=== PATIENT | male | born 1955 | race Caucasian/White ===

== ENCOUNTER 2017-08-14 14:43 | Emergency (ER) | payer MEDICAID ==
[~2017-08-14] VITALS: Ht 160 cm; Wt 59.1 kg
[~2017-08-14 14:43] MED LIST: ALBU8.5H8 INH; CEPH500C5 PO; IBUP-24 PO; LACT1CAP65 PO
[2017-08-14 15:02] LABS: BASOPHILS # (AUTO) 0.1 X10'3 (0-0.2); BASOPHILS % (AUTO) 0.5 % (0-1); EOSINOPHILS # (AUTO) 0.3 X10'3 (0-0.9); EOSINOPHILS % (AUTO) 2.4 % (0-6); HEMOGLOBIN 11.1 g/dl (14.0-17.9); LYMPHOCYTES # (AUTO) 2.9 X10'3 (1.1-4.8); LYMPHOCYTES % (AUTO) 21.8 % (21-51); MEAN CORPUSCULAR HEMOGLOBIN 31.5 PG (27.0-31.0); MEAN CORPUSCULAR HGB CONC 33.5 % (33.0-36.5); MEAN CORPUSCULAR VOLUME 94.1 FL (78-98); MEAN PLATELET VOLUME 7.4 FL (7.4-10.4); MONOCYTES # (AUTO) 1.2 X10'3 (0-0.9); MONOCYTES % (AUTO) 8.7 % (2-12); NEUTROPHILS % (AUTO) 66.6 % (42-75); PLATELET COUNT 337 X10'3 (140-440); WHITE BLOOD COUNT 13.4 X10'3 (4.5-11.0)
[2017-08-14 15:11] LABS: INR 0.9 INR; PARTIAL THROMBOPLASTIN TIME 27 SECONDS (22-32); PROTHROMBIN TIME 9.8 SECONDS (9.0-12.0)
[2017-08-14 15:18] LABS: ALANINE AMINOTRANSFERASE 10 U/L (12-78); ALBUMIN 2.5 G/DL (3.4-5.0); ALBUMIN/GLOBULIN RATIO 0.6 (1.1-1.5); ALKALINE PHOSPHATASE 87 IU/L (46-116); ANION GAP 8 (8-16); ASPARTATE AMINO TRANSFERASE 13 U/L (10-37); BILIRUBIN,TOTAL 0.2 MG/DL (0.1-1.0); BLOOD UREA NITROGEN 16 MG/DL (7-18); BUN/CREATININE RATIO 11.4 (5.4-32.0); CALCIUM 8.2 MG/DL (8.5-10.1); CHLORIDE 105 MMOL/L (99-107); GLUCOSE 117 MG/DL (70-104); LIPASE 60 U/L (73-393); POTASSIUM 3.7 MMOL/L (3.5-5.1); SODIUM 139 MMOL/L (135-145); TOTAL CARBON DIOXIDE 25.7 MMOL/L (24-32); TOTAL PROTEIN 6.6 G/DL (6.4-8.2); eGFR 51 ML/MIN
[2017-08-14] MEDS ORDERED: normal saline 1000ML IV soln IVB ONE (16:20)
[2017-08-14] MEDS ORDERED: azithromycin/NS 500mg/250ml 250 ML IV ONE (16:20)
[2017-08-14] MEDS ORDERED: CefTRIAXone 2gm/NS 100ml IVPB 100 ML IV ONE (16:20)
[2017-08-14 17:33] VITALS: BP 118/92
== END 2017-08-14 19:09 | disposition home or self-care (01) ==
LOC: ER 14:44
DX: R55 Syncope and collapse (principal); F12.10 Cannabis abuse, uncomplicated; F17.200 Nicotine dependence, unspecified, uncomplicated; Z98.890 Other specified postprocedural states; Z79.899 Other long term (current) drug therapy
CPT/HCPCS: 36415; 71045; 80053; 83690; 84484; 85025; 85610; 85730; 93005; 99285; J7030

== ENCOUNTER 2018-10-09 17:27 | Emergency (ER) | payer MEDICAID ==
[~2018-10-09] VITALS: Ht 160 cm; Wt 59.1 kg
[~2018-10-09 17:27] MED LIST changes: -CEPH500C5 PO
[2018-10-09 18:58] LABS: BASOPHILS % (AUTO) 0.3 % (0-1); EOSINOPHILS # (AUTO) 0.1 X10'3 (0-0.9); EOSINOPHILS % (AUTO) 0.6 % (0-6); HEMATOCRIT 43.9 % (42.0-52.0); HEMOGLOBIN 14.6 g/dl (14.0-17.9); LYMPHOCYTES # (AUTO) 1.4 X10'3 (1.1-4.8); LYMPHOCYTES % (AUTO) 11.5 % (21-51); MEAN CORPUSCULAR HEMOGLOBIN 32.1 PG (27.0-31.0); MEAN CORPUSCULAR HGB CONC 33.3 g/dL (33.0-36.5); MEAN CORPUSCULAR VOLUME 96.6 FL (78-98); MONOCYTES # (AUTO) 1.3 X10'3 (0-0.9); MONOCYTES % (AUTO) 10.8 % (2-12); NEUTROPHILS # (AUTO) 9.1 X10'3 (1.8-7.7); NEUTROPHILS % (AUTO) 76.8 % (42-75); PLATELET COUNT 321 X10'3 (140-440); RED BLOOD COUNT 4.54 X10'6 (4.70-6.10); RED CELL DISTRIBUTION WIDTH 15.2 % (11.5-14.5); WHITE BLOOD COUNT 11.9 X10'3 (4.5-11.0)
[2018-10-09 19:10] LABS: ALANINE AMINOTRANSFERASE 20 U/L (12-78); ALBUMIN 3.1 G/DL (3.4-5.0); ALBUMIN/GLOBULIN RATIO 0.6 (1.1-1.5); ALKALINE PHOSPHATASE 100 IU/L (46-116); ANION GAP 7 (8-16); ASPARTATE AMINO TRANSFERASE 15 U/L (10-37); BILIRUBIN,TOTAL 0.2 MG/DL (0.1-1.0); BLOOD UREA NITROGEN 13 MG/DL (7-18); BUN/CREATININE RATIO 11.7 (5.4-32.0); CALCIUM 9.3 MG/DL (8.5-10.1); CHLORIDE 99 MMOL/L (99-107); CREATININE 1.11 MG/DL (0.60-1.10); GLUCOSE 130 MG/DL (70-104); POTASSIUM 3.9 MMOL/L (3.5-5.1); SODIUM 135 MMOL/L (135-145); TOTAL CARBON DIOXIDE 28.7 MMOL/L (24-32); eGFR 67 ML/MIN
[2018-10-09 19:15] LABS: INR 0.9 INR; PARTIAL THROMBOPLASTIN TIME 28 SECONDS (22-32); PROTHROMBIN TIME 9.2 SECONDS (9.0-12.0)
[2018-10-09 20:08] LABS: ETHANOL < 0.010 GM/DL (0.0-0.010)
[2018-10-09] MEDS ORDERED: dexamethasone sod phosphate 10mg/ml inj IV STA (20:29)
[2018-10-09 20:53] VITALS: BP 158/80
== END 2018-10-09 20:55 | disposition home or self-care (01) ==
LOC: ER 17:28
DX: M10.9 Gout, unspecified (principal); R42 Dizziness and giddiness; R79.1 Abnormal coagulation profile; F12.90 Cannabis use, unspecified, uncomplicated; Z98.890 Other specified postprocedural states; Z88.6 Allergy status to analgesic agent; Z88.8 Allergy status to other drugs, medicaments and biological substances; Z79.899 Other long term (current) drug therapy
CPT/HCPCS: 36415; 71045; 80053; 80320; 84484; 85025; 85610; 85730; 93005; 96374; 99284; J1100

== ENCOUNTER 2020-04-18 12:33 | Inpatient (IN) | payer MEDICARE, MEDICAID ==
[~2020-04-18] VITALS: Ht 160 cm; Wt 64.6 kg
--- NOTE | 2020-04-18 14:03 | NUR ---
pt's [facility] [place] [phone], Jeanne [phone], Obdulio [phone]
[2020-04-18 14:11] LABS: BASOPHILS # (AUTO) 0.1 X10'3 (0-0.2); BASOPHILS % (AUTO) 0.4 % (0-1); EOSINOPHILS # (AUTO) 0.1 X10'3 (0-0.9); EOSINOPHILS % (AUTO) 0.4 % (0-6); HEMATOCRIT 39.4 % (42.0-52.0); HEMOGLOBIN 13.2 g/dl (14.0-17.9); LYMPHOCYTES # (AUTO) 1.3 X10'3 (1.1-4.8); LYMPHOCYTES % (AUTO) 8.1 % (21-51); MEAN CORPUSCULAR HEMOGLOBIN 31.8 PG (27.0-31.0); MEAN CORPUSCULAR HGB CONC 33.4 g/dL (33.0-36.5); MEAN CORPUSCULAR VOLUME 95.1 FL (78-98); MEAN PLATELET VOLUME 7.7 FL (7.4-10.4); MONOCYTES # (AUTO) 1.5 X10'3 (0-0.9); MONOCYTES % (AUTO) 9.6 % (2-12); NEUTROPHILS # (AUTO) 12.8 X10'3 (1.8-7.7); NEUTROPHILS % (AUTO) 81.5 % (42-75); PLATELET COUNT 406 X10'3 (140-440); RED BLOOD COUNT 4.14 X10'6 (4.70-6.10); RED CELL DISTRIBUTION WIDTH 14.3 % (11.5-14.5); WHITE BLOOD COUNT 15.7 X10'3 (4.5-11.0)
[2020-04-18] MEDS ORDERED: morphine 4 MG/ML inj SYRINge IV ONE (14:20)
[2020-04-18] MEDS ORDERED: ondansetron 4mg/5ml UD cup PO ONE (14:20)
[2020-04-18] MEDS ORDERED: ondansetron 4mg rapidly disintigrating tab PO ONE (14:35)
[2020-04-18] MEDS ORDERED: piperacillin/tazo 3.375gm/50ml 50 ML IV ONE (15:00)
[2020-04-18] MEDS ORDERED: vancomycin/NS 1 GM ADD-VANTAGE 250 ML IV ONE (15:00)
[2020-04-18 15:02] LABS: ALANINE AMINOTRANSFERASE 25 U/L (12-78); ALBUMIN 2.5 G/DL (3.4-5.0); ALBUMIN/GLOBULIN RATIO 0.5 (1.1-1.5); ALKALINE PHOSPHATASE 149 IU/L (46-116); ANION GAP 7 (8-16); ASPARTATE AMINO TRANSFERASE 27 U/L (10-37); BILIRUBIN,TOTAL 0.7 MG/DL (0.1-1.0); BLOOD UREA NITROGEN 9 MG/DL (7-18); BUN/CREATININE RATIO 8.9 (5.4-32.0); C-REACTIVE PROTEIN 23.42 MG/DL (0.0-0.5); CALCIUM 8.9 MG/DL (8.5-10.1); CHLORIDE 95 MMOL/L (99-107); CREATININE 1.01 MG/DL (0.60-1.10); GLUCOSE 132 MG/DL (70-104); POTASSIUM 4.1 MMOL/L (3.5-5.1); SODIUM 130 MMOL/L (135-145); TOTAL CARBON DIOXIDE 27.6 MMOL/L (24-32); TOTAL PROTEIN 7.8 G/DL (6.4-8.2); eGFR 74 ML/MIN
[2020-04-18] MEDS ORDERED: normal saline 1000ml 1,000 ML IV ONE (15:15)
[2020-04-18] MEDS ORDERED: ASPI-611 PO (15:40)
[2020-04-18] MEDS ORDERED: ATOR10TA PO (15:40)
[2020-04-18] MEDS ORDERED: ALLO100T25 PO (15:40)
--- NOTE | 2020-04-18 15:55 | NUR ---
Dr Byrne at bedside to evaluate pt
[2020-04-18] MEDS ORDERED: acetaminophen 325mg tablet PO PRN (16:10)
[2020-04-18] MEDS ORDERED: mag hydrox/Alum hydrox/simeth 30ml oral suspension PO PRN (16:10)
[2020-04-18] MEDS ORDERED: ondansetron/PF 4mg/2ml inj IV PRN (16:10)
--- NOTE | 2020-04-18 16:30 | NUR ---
picture of rt foot was taken
[2020-04-18] MEDS: normal saline 1000ml 1,000 ML IV SCH ×2 (16:48→20:39)
[2020-04-18 16:55] LABS: URINE AMPHETAMINE SCREEN NEGATIVE (Neg); URINE BARBITUATE SCREEN NEGATIVE (Neg); URINE BENZODIAZEPINES SCREEN NEGATIVE (Neg); URINE CANNABINOID SCREEN POSITIVE (Neg); URINE COCAINE SCREEN NEGATIVE (Neg); URINE METHADONE SCREEN NEGATIVE (Neg); URINE OPIATE SCREEN POSITIVE (Neg); URINE PHENCYCLIDINE SCREEN NEGATIVE (Neg)
[2020-04-18] MEDS: levoFLOXACIN-Levaquin 750MG/D5 150 ML IV SCH (17:29)
[2020-04-18] MEDS: morphine 2 MG/ML inj. syringe IV PRN (18:46)
--- NOTE | 2020-04-18 20:00 | NUR ---
Received report from Ward BROWN in ER. Pt arrived on the unit via wheelchair. No personal belongings beside his clothes. Was able to ambulate to bed with assistance. SL, VSS, and on R/A. No signs of distress, will continue to monitor.
[2020-04-18] MEDS: heparin, porcine 5000 units/ml vial SQ SCH (20:45)
[2020-04-18 20:47] VITALS: BP 152/65
[2020-04-19] VITALS: BP 135/52
[2020-04-19] MEDS: morphine 2 MG/ML inj. syringe IV PRN ×5 (01:22→22:37)
[2020-04-19] MEDS: vancomycin/NS 1 GM ADD-VANTAGE 250 ML IV SCH ×2 (04:24→15:06)
[2020-04-19 05:21] LABS: BASOPHILS % (AUTO) 0.3 % (0-1); EOSINOPHILS # (AUTO) 0.1 X10'3 (0-0.9); EOSINOPHILS % (AUTO) 0.8 % (0-6); HEMATOCRIT 35.7 % (42.0-52.0); HEMOGLOBIN 11.9 g/dl (14.0-17.9); LYMPHOCYTES # (AUTO) 1.5 X10'3 (1.1-4.8); LYMPHOCYTES % (AUTO) 11.1 % (21-51); MEAN CORPUSCULAR HEMOGLOBIN 32.1 PG (27.0-31.0); MEAN CORPUSCULAR HGB CONC 33.3 g/dL (33.0-36.5); MEAN CORPUSCULAR VOLUME 96.3 FL (78-98); MEAN PLATELET VOLUME 7.8 FL (7.4-10.4); MONOCYTES # (AUTO) 1.6 X10'3 (0-0.9); MONOCYTES % (AUTO) 11.6 % (2-12); NEUTROPHILS # (AUTO) 10.6 X10'3 (1.8-7.7); NEUTROPHILS % (AUTO) 76.2 % (42-75); PLATELET COUNT 359 X10'3 (140-440); RED CELL DISTRIBUTION WIDTH 14.2 % (11.5-14.5); WHITE BLOOD COUNT 13.9 X10'3 (4.5-11.0)
[2020-04-19 05:42] LABS: ANION GAP 11 (8-16); BLOOD UREA NITROGEN 10 MG/DL (7-18); BUN/CREATININE RATIO 11.4 (5.4-32.0); CALCIUM 8.3 MG/DL (8.5-10.1); CHLORIDE 100 MMOL/L (99-107); CREATININE 0.88 MG/DL (0.60-1.10); GLUCOSE 118 MG/DL (70-104); POTASSIUM 3.8 MMOL/L (3.5-5.1); SODIUM 134 MMOL/L (135-145); TOTAL CARBON DIOXIDE 23.3 MMOL/L (24-32); eGFR 87 ML/MIN
--- NOTE | 2020-04-19 06:00 | NUR ---
Patient in room SUSANNA 346. I have received report from KEVIN Oviedo and had the opportunity to ask questions and assume patient care.
--- NOTE | 2020-04-19 06:16 | NUR ---
Problems reprioritized. Patient report given, questions answered & plan of care reviewed with Bulmaro BROWN.
[2020-04-19 07:00] VITALS: BP 101/62
[2020-04-19] MEDS: normal saline 1000ml 1,000 ML IV SCH ×2 (07:06→18:22)
[2020-04-19] MEDS: levoFLOXACIN-Levaquin 750MG/D5 150 ML IV SCH (07:06)
[2020-04-19] MEDS: heparin, porcine 5000 units/ml vial SQ SCH ×2 (07:07→19:43)
[2020-04-19] MEDS: atorvastatin 10mg tablet PO SCH (09:19)
[2020-04-19] MEDS: aspirin 81mg tablet.DR PO SCH (09:19)
[2020-04-19] MEDS: allopurinol 100mg tablet PO SCH ×2 (09:19→19:43)
[2020-04-19 12:07] VITALS: BP 123/65
[2020-04-19 18:00] VITALS: BP 138/59
--- NOTE | 2020-04-19 18:32 | NUR ---
Problems reprioritized. Patient report given, questions answered & plan of care reviewed with KEVIN García.
--- NOTE | 2020-04-19 18:40 | NUR ---
Patient in room SUSANNA 346. I have received report from KEVIN Casey and had the opportunity to ask questions and assume patient care.
[2020-04-19] MEDS: lactobacillus rhamnosus 10,000 MMU CELLS/CAPSULE PO SCH (19:42)
[2020-04-20 00:25] VITALS: BP 127/76
[2020-04-20] MEDS ORDERED: VANCOMYCIN LEVEL IV ONE (03:30)
[2020-04-20] MEDS: morphine 2 MG/ML inj. syringe IV PRN ×4 (03:44→19:54)
[2020-04-20] MEDS: vancomycin/NS 1 GM ADD-VANTAGE 250 ML IV SCH (03:48)
[2020-04-20 03:55] LABS: BASOPHILS # (AUTO) 0.1 X10'3 (0-0.2); BASOPHILS % (AUTO) 0.5 % (0-1); EOSINOPHILS # (AUTO) 0.1 X10'3 (0-0.9); EOSINOPHILS % (AUTO) 0.5 % (0-6); HEMATOCRIT 33.8 % (42.0-52.0); HEMOGLOBIN 11.6 g/dl (14.0-17.9); LYMPHOCYTES # (AUTO) 2.1 X10'3 (1.1-4.8); LYMPHOCYTES % (AUTO) 16.5 % (21-51); MEAN CORPUSCULAR HEMOGLOBIN 32.8 PG (27.0-31.0); MEAN CORPUSCULAR HGB CONC 34.2 g/dL (33.0-36.5); MEAN CORPUSCULAR VOLUME 95.8 FL (78-98); MEAN PLATELET VOLUME 7.6 FL (7.4-10.4); MONOCYTES # (AUTO) 1.5 X10'3 (0-0.9); MONOCYTES % (AUTO) 11.4 % (2-12); NEUTROPHILS # (AUTO) 9.2 X10'3 (1.8-7.7); NEUTROPHILS % (AUTO) 71.1 % (42-75); PLATELET COUNT 369 X10'3 (140-440); RED BLOOD COUNT 3.53 X10'6 (4.70-6.10); RED CELL DISTRIBUTION WIDTH 13.7 % (11.5-14.5); WHITE BLOOD COUNT 12.9 X10'3 (4.5-11.0)
[2020-04-20 04:10] LABS: ALBUMIN 1.9 G/DL (3.4-5.0); ANION GAP 7 (8-16); BLOOD UREA NITROGEN 8 MG/DL (7-18); BUN/CREATININE RATIO 8.1 (5.4-32.0); CALCIUM 8.4 MG/DL (8.5-10.1); CHLORIDE 99 MMOL/L (99-107); CREATININE 0.99 MG/DL (0.60-1.10); GLUCOSE 121 MG/DL (70-104); POTASSIUM 3.5 MMOL/L (3.5-5.1); SODIUM 131 MMOL/L (135-145); TOTAL CARBON DIOXIDE 24.9 MMOL/L (24-32); VANCOMYCIN,TROUGH 14.4 UG/ML (6.0-14.0); eGFR 76 ML/MIN
--- NOTE | 2020-04-20 06:21 | NUR ---
Problems reprioritized. Patient report given, questions answered & plan of care reviewed with KEVIN Carpenter.
--- NOTE | 2020-04-20 06:31 | NUR ---
Patient in room SUSANNA 346. I have received report from KEVIN García and had the opportunity to ask questions and assume patient care.
[2020-04-20 07:00] VITALS: BP 139/66
[2020-04-20] MEDS: aspirin 81mg tablet.DR PO SCH (08:00)
[2020-04-20] MEDS: levoFLOXACIN-Levaquin 750MG/D5 150 ML IV SCH (08:01)
[2020-04-20] MEDS: allopurinol 100mg tablet PO SCH ×2 (08:02→19:57)
[2020-04-20] MEDS: atorvastatin 10mg tablet PO SCH (08:02)
[2020-04-20] MEDS: lactobacillus rhamnosus 10,000 MMU CELLS/CAPSULE PO SCH ×2 (08:02→19:56)
[2020-04-20] MEDS: normal saline 1000ml 1,000 ML IV SCH ×2 (08:02→17:04)
[2020-04-20] MEDS: heparin, porcine 5000 units/ml vial SQ SCH ×2 (08:02→19:58)
[2020-04-20 11:00] VITALS: BP 137/64
[2020-04-20] MEDS: VANCOmycin 1250MG/NS 250ml Bag 250 ML IV SCH (16:13)
--- NOTE | 2020-04-20 18:31 | NUR ---
Problems reprioritized. Patient report given, questions answered & plan of care reviewed with Qiana Kiran RN.
--- NOTE | 2020-04-20 18:35 | NUR ---
Patient in room SUSANNA 346. I have received report from MARIA LUISA BROWN and had the opportunity to ask questions and assume patient care.
[2020-04-20 20:00] VITALS: BP 158/58
[2020-04-21] VITALS: BP 155/65
[2020-04-21] MEDS: normal saline 1000ml 1,000 ML IV SCH ×2 (00:12→13:00)
[2020-04-21] MEDS: morphine 2 MG/ML inj. syringe IV PRN ×5 (01:24→23:36)
[2020-04-21] MEDS: VANCOmycin 1250MG/NS 250ml Bag 250 ML IV SCH ×2 (04:31→16:58)
--- NOTE | 2020-04-21 05:15 | NUR ---
Patient report given, questions answered & plan of care reviewed with RAJESH BROWN.
--- NOTE | 2020-04-21 05:30 | NUR ---
Patient in room SUSANNA 346. I have received report from KEVIN Fletcher and had the opportunity to ask questions and assume patient care.
[2020-04-21 06:04] LABS: ALBUMIN 1.8 G/DL (3.4-5.0); ANION GAP 9 (8-16); BLOOD UREA NITROGEN 8 MG/DL (7-18); BUN/CREATININE RATIO 8.2 (5.4-32.0); CALCIUM 7.7 MG/DL (8.5-10.1); CHLORIDE 98 MMOL/L (99-107); CREATININE 0.98 MG/DL (0.60-1.10); GLUCOSE 121 MG/DL (70-104); POTASSIUM 3.1 MMOL/L (3.5-5.1); SODIUM 130 MMOL/L (135-145); TOTAL CARBON DIOXIDE 22.7 MMOL/L (24-32); eGFR 77 ML/MIN
[2020-04-21 06:09] LABS: BASOPHILS % (AUTO) 0.2 % (0-1); EOSINOPHILS % (AUTO) 0.2 % (0-6); HEMOGLOBIN 11.8 g/dl (14.0-17.9); LYMPHOCYTES # (AUTO) 1.8 X10'3 (1.1-4.8); LYMPHOCYTES % (AUTO) 14.5 % (21-51); MEAN CORPUSCULAR HEMOGLOBIN 31.9 PG (27.0-31.0); MEAN CORPUSCULAR HGB CONC 33.7 g/dL (33.0-36.5); MEAN CORPUSCULAR VOLUME 94.6 FL (78-98); MEAN PLATELET VOLUME 7.5 FL (7.4-10.4); MONOCYTES # (AUTO) 1.7 X10'3 (0-0.9); MONOCYTES % (AUTO) 13.4 % (2-12); NEUTROPHILS # (AUTO) 8.9 X10'3 (1.8-7.7); NEUTROPHILS % (AUTO) 71.7 % (42-75); PLATELET COUNT 400 X10'3 (140-440); RED CELL DISTRIBUTION WIDTH 13.8 % (11.5-14.5); WHITE BLOOD COUNT 12.4 X10'3 (4.5-11.0)
--- NOTE | 2020-04-21 06:30 | NUR ---
Patient in room ORTHO 4024. I have received report from Candy BROWN and had the opportunity to ask questions and assume patient care.
--- NOTE | 2020-04-21 06:41 | NUR ---
Problems reprioritized. Patient report given, questions answered & plan of care reviewed with KEVIN Kemp.
[2020-04-21] MEDS: lactobacillus rhamnosus 10,000 MMU CELLS/CAPSULE PO SCH ×2 (07:33→19:26)
[2020-04-21] MEDS: allopurinol 100mg tablet PO SCH ×2 (07:34→19:26)
[2020-04-21] MEDS: atorvastatin 10mg tablet PO SCH (07:34)
[2020-04-21] MEDS: aspirin 81mg tablet.DR PO SCH (07:35)
[2020-04-21] MEDS: heparin, porcine 5000 units/ml vial SQ SCH ×2 (07:36→19:27)
[2020-04-21 10:00] VITALS: BP 166/61
[2020-04-21] MEDS ORDERED: magnesium Cl slow-release 64mg tablet PO PRN (13:15)
[2020-04-21] MEDS ORDERED: magnesium 4gm in 100ml NS 100 ML IV PRN (13:15)
[2020-04-21] MEDS ORDERED: potassium CL 10mEq/100ml bag 100 ML IV PRN (13:15)
[2020-04-21] MEDS ORDERED: potassium Cl 20 mEq SR tablet PO PRN (13:15)
[2020-04-21] MEDS: potassium Cl 20 mEq SR tablet PO PRN ×3 (13:39→21:23)
[2020-04-21] MEDS ORDERED: iohexol 350MG/ML 100ml bottle IV ONE (14:57)
--- NOTE | 2020-04-21 16:00 | NUR ---
Patient did no void all day, tried to get patient to use urinal but was unable to. Bladder scan showed 800ml. I straight cathed patient per order, 1200 ml dark yellow urine drained. Addendum: 04/21/20 at 1702 by Viridiana Davenport RN This was charted on the wrong patient, disregard.
[2020-04-21 18:00] VITALS: BP 148/70
--- NOTE | 2020-04-21 18:14 | NUR ---
Problems reprioritized. Patient report given, questions answered & plan of care reviewed with Monet Rowe RN.
--- NOTE | 2020-04-21 18:29 | NUR ---
Problems reprioritized. Patient report given, questions answered & plan of care reviewed with Monet Garcia RN.
[2020-04-21] MEDS: K and/or MAG REPLACEMENT MC SCH (19:25)
[2020-04-21 22:00] VITALS: BP 127/52
[2020-04-22] MEDS ORDERED: VANCOMYCIN LEVEL IV ONE (03:30)
[2020-04-22] MEDS: VANCOmycin 1250MG/NS 250ml Bag 250 ML IV SCH (03:38)
[2020-04-22] MEDS: normal saline 1000ml 1,000 ML IV SCH ×3 (03:45→20:10)
[2020-04-22 04:33] LABS: ALBUMIN 1.9 G/DL (3.4-5.0); ANION GAP 9 (8-16); BLOOD UREA NITROGEN 8 MG/DL (7-18); BUN/CREATININE RATIO 8.7 (5.4-32.0); CALCIUM 8.2 MG/DL (8.5-10.1); CHLORIDE 98 MMOL/L (99-107); CREATININE 0.92 MG/DL (0.60-1.10); GLUCOSE 116 MG/DL (70-104); POTASSIUM 3.5 MMOL/L (3.5-5.1); SODIUM 131 MMOL/L (135-145); TOTAL CARBON DIOXIDE 24.2 MMOL/L (24-32); eGFR 82 ML/MIN
[2020-04-22 04:38] LABS: VANCOMYCIN,TROUGH 23.2 UG/ML (6.0-14.0)
--- NOTE | 2020-04-22 04:46 | NUR ---
Received critical lab value for Vanco trough of 23.2. Per pharmacist Hermelindo recommendation to continue to infuse dose as hung and AM pharmacist will adjust dose accordingly. Page to MD Hu with recommendation sent.
[2020-04-22 06:26] LABS: BASOPHILS # (AUTO) 0.1 X10'3 (0-0.2); BASOPHILS % (AUTO) 0.7 % (0-1); EOSINOPHILS % (AUTO) 0.2 % (0-6); HEMOGLOBIN 12.3 g/dl (14.0-17.9); LYMPHOCYTES # (AUTO) 1.8 X10'3 (1.1-4.8); LYMPHOCYTES % (AUTO) 13.1 % (21-51); MEAN CORPUSCULAR HEMOGLOBIN 32.5 PG (27.0-31.0); MEAN CORPUSCULAR HGB CONC 34.3 g/dL (33.0-36.5); MEAN CORPUSCULAR VOLUME 94.8 FL (78-98); MEAN PLATELET VOLUME 7.5 FL (7.4-10.4); MONOCYTES # (AUTO) 1.5 X10'3 (0-0.9); NEUTROPHILS # (AUTO) 10.4 X10'3 (1.8-7.7); PLATELET COUNT 423 X10'3 (140-440); RED CELL DISTRIBUTION WIDTH 13.7 % (11.5-14.5); WHITE BLOOD COUNT 13.9 X10'3 (4.5-11.0)
[2020-04-22 06:30] VITALS: BP 151/68
--- NOTE | 2020-04-22 06:54 | NUR ---
Report given to Freddie BROWN.
--- NOTE | 2020-04-22 06:58 | NUR ---
Patient in room ORTHO 4024. I have received report from Joi BROWN and had the opportunity to ask questions and assume patient care.
[2020-04-22] MEDS: atorvastatin 10mg tablet PO SCH (07:57)
[2020-04-22] MEDS: allopurinol 100mg tablet PO SCH ×2 (07:57→20:34)
[2020-04-22] MEDS: lactobacillus rhamnosus 10,000 MMU CELLS/CAPSULE PO SCH ×2 (07:57→20:34)
[2020-04-22] MEDS: aspirin 81mg tablet.DR PO SCH (07:57)
[2020-04-22] MEDS: heparin, porcine 5000 units/ml vial SQ SCH ×2 (07:58→20:35)
[2020-04-22] MEDS: K and/or MAG REPLACEMENT MC SCH ×2 (08:00→20:00)
[2020-04-22 10:00] VITALS: BP 142/51
[2020-04-22] MEDS: oxyCODONE SR 10mg (sust. release) tab PO SCH ×2 (11:27→20:35)
[2020-04-22] MEDS: morphine 2 MG/ML inj. syringe IV PRN (16:21)
[2020-04-22] MEDS: vancomycin/NS 1 GM ADD-VANTAGE 250 ML IV SCH (16:22)
[2020-04-22] MEDS: magnesium hydroxide 30ml (MOM) UD suspension PO PRN (17:29)
[2020-04-22 18:00] VITALS: BP 138/59
--- NOTE | 2020-04-22 18:22 | NUR ---
Problems reprioritized. Patient report given, questions answered & plan of care reviewed with Scarlet BROWN.
--- NOTE | 2020-04-22 18:25 | NUR ---
Patient in room ORTHO 4024. I have received report from Beth BROWN and had the opportunity to ask questions and assume patient care.
[2020-04-22] MEDS ORDERED: oxyCODONE SR 10mg (sust. release) tab PO SCH (20:00)
[2020-04-22 22:00] VITALS: BP 143/60
--- NOTE | 2020-04-22 22:49 | NUR ---
Joya ROQUE, patient spiked fever. One time dose of Ibuprofen obtained from .
[2020-04-22] MEDS ORDERED: ibuprofen tablet 400 MG TABLET PO ONE (22:50)
[2020-04-23] MEDS: normal saline 1000ml 1,000 ML IV SCH ×2 (02:08→14:05)
[2020-04-23] MEDS: morphine 2 MG/ML inj. syringe IV PRN ×3 (03:32→20:16)
[2020-04-23] MEDS: vancomycin/NS 1 GM ADD-VANTAGE 250 ML IV SCH ×2 (03:34→15:43)
--- NOTE | 2020-04-23 03:48 | NUR ---
Report given to Petra BROWN
--- NOTE | 2020-04-23 03:51 | NUR ---
Patient in room ORTHO 4024. I have received report from KEVIN Healy and had the opportunity to ask questions and assume patient care. Addendum: 04/23/20 at 0352 by Kellen Cherry RN received report from KEVIN Novak
[2020-04-23 06:13] LABS: BASOPHILS # (AUTO) 0.1 X10'3 (0-0.2); BASOPHILS % (AUTO) 0.4 % (0-1); EOSINOPHILS # (AUTO) 0.1 X10'3 (0-0.9); EOSINOPHILS % (AUTO) 0.9 % (0-6); HEMATOCRIT 36.9 % (42.0-52.0); HEMOGLOBIN 12.2 g/dl (14.0-17.9); LYMPHOCYTES # (AUTO) 2.5 X10'3 (1.1-4.8); LYMPHOCYTES % (AUTO) 19.8 % (21-51); MEAN CORPUSCULAR HEMOGLOBIN 31.6 PG (27.0-31.0); MEAN CORPUSCULAR HGB CONC 33.2 g/dL (33.0-36.5); MEAN CORPUSCULAR VOLUME 95.3 FL (78-98); MEAN PLATELET VOLUME 7.6 FL (7.4-10.4); MONOCYTES # (AUTO) 1.1 X10'3 (0-0.9); MONOCYTES % (AUTO) 8.9 % (2-12); NEUTROPHILS # (AUTO) 8.8 X10'3 (1.8-7.7); PLATELET COUNT 482 X10'3 (140-440); RED BLOOD COUNT 3.87 X10'6 (4.70-6.10); WHITE BLOOD COUNT 12.6 X10'3 (4.5-11.0)
[2020-04-23 06:18] LABS: ALBUMIN 1.9 G/DL (3.4-5.0); ANION GAP 3 (8-16); BLOOD UREA NITROGEN 9 MG/DL (7-18); BUN/CREATININE RATIO 8.3 (5.4-32.0); CALCIUM 10.2 MG/DL (8.5-10.1); CHLORIDE 100 MMOL/L (99-107); CREATININE 1.09 MG/DL (0.60-1.10); GLUCOSE 106 MG/DL (70-104); POTASSIUM 3.7 MMOL/L (3.5-5.1); SODIUM 131 MMOL/L (135-145); TOTAL CARBON DIOXIDE 27.8 MMOL/L (24-32); eGFR 68 ML/MIN
--- NOTE | 2020-04-23 06:26 | NUR ---
Patient in room ORTHO 4024. I have received report from Eden BROWN and had the opportunity to ask questions and assume patient care.
--- NOTE | 2020-04-23 06:29 | NUR ---
Problems reprioritized. Patient report given, questions answered & plan of care reviewed with KEVIN Neil.
[2020-04-23 07:43] VITALS: BP 119/60
[2020-04-23] MEDS: K and/or MAG REPLACEMENT MC SCH ×2 (08:00→20:00)
[2020-04-23] MEDS: aspirin 81mg tablet.DR PO SCH (09:33)
[2020-04-23] MEDS: atorvastatin 10mg tablet PO SCH (09:33)
[2020-04-23] MEDS: lactobacillus rhamnosus 10,000 MMU CELLS/CAPSULE PO SCH ×2 (09:33→20:05)
[2020-04-23] MEDS: allopurinol 100mg tablet PO SCH ×2 (09:33→20:05)
[2020-04-23] MEDS: heparin, porcine 5000 units/ml vial SQ SCH ×2 (09:34→20:06)
[2020-04-23] MEDS: oxyCODONE SR 10mg (sust. release) tab PO SCH ×2 (09:34→20:06)
[2020-04-23 11:00] VITALS: BP 127/56
--- NOTE | 2020-04-23 14:31 | NUR ---
MS given and attempted to scan, scanner will not work. Performing WC and needs medications before doing so, no time to wait on scanner to charge or to be fixed.
[2020-04-23] MEDS: magnesium hydroxide 30ml (MOM) UD suspension PO PRN (14:35)
--- NOTE | 2020-04-23 15:12 | NUR ---
Initial: Pt admit DX R foot osteomyelitis pending OR tomorrow, R foot cellulitis, PVD will need revascularization, and hyperlipidemia per MD note. Hx Gout w/ site bursting on 5th metatarsal TUBE BACKER per EMR; dietary notified regarding limiting high purine foods. PO ~25-50% initial meals w/ 75% breakfast and lunch today. LBM 10/6 without routine bowel care this admit and receiving oxycodone routinely; BRONWYN d/w RN regarding routine bowel care as well as opioid antagonist if MD agreeable. Constipation likely impacting PO. Will monitor for additional protein needs post-op pending OR results as well as additional bowel care this admit. If significant surgical wound may benefit from Zachary ONS. Rec: 1. continue regular diet 2. monitor for ONS needs post-op; consider Zachary ONS pending OR results 3. routine bowel care; consider opioid antagonist if MD agreeable receiving routine oxycodone and PRN morphine 4. scaled wt this admit Addendum: 04/23/20 at [address] Amended: Links added.
[2020-04-23 18:00] VITALS: BP 151/62
--- NOTE | 2020-04-23 18:30 | NUR ---
Patient in room ORTHO 4024. I have received report from Jolynn BROWN and had the opportunity to ask questions and assume patient care.
[2020-04-23 22:00] VITALS: BP 124/54
[2020-04-24] MEDS: morphine 2 MG/ML inj. syringe IV PRN ×3 (01:13→23:43)
[2020-04-24] MEDS: normal saline 1000ml 1,000 ML IV SCH ×3 (02:25→23:47)
[2020-04-24] MEDS ORDERED: VANCOMYCIN LEVEL IV ONE (03:30)
[2020-04-24] MEDS: vancomycin/NS 1 GM ADD-VANTAGE 250 ML IV SCH (05:29)
--- NOTE | 2020-04-24 05:59 | NUR ---
Problems reprioritized. Patient report given, questions answered & plan of care reviewed with Lavern BROWN.
[2020-04-24 06:00] VITALS: BP 141/64
--- NOTE | 2020-04-24 06:30 | NUR ---
Received report from Chuyita BR[facility]
[2020-04-24] MEDS: K and/or MAG REPLACEMENT MC SCH ×2 (08:00→20:00)
[2020-04-24] MEDS: lactobacillus rhamnosus 10,000 MMU CELLS/CAPSULE PO SCH ×2 (08:44→19:59)
[2020-04-24] MEDS: oxyCODONE SR 10mg (sust. release) tab PO SCH ×2 (08:44→19:59)
[2020-04-24] MEDS: atorvastatin 10mg tablet PO SCH (08:44)
[2020-04-24] MEDS: aspirin 81mg tablet.DR PO SCH (08:46)
[2020-04-24] MEDS: allopurinol 100mg tablet PO SCH ×2 (08:46→19:59)
[2020-04-24] MEDS: heparin, porcine 5000 units/ml vial SQ SCH ×2 (08:46→19:59)
[2020-04-24 10:00] VITALS: BP 143/65
--- NOTE | 2020-04-24 15:26 | NUR ---
Returned call to Angio, asked if patient has eaten lunch, states they cannot perform test if he's eaten. Stated maybe they'll try for tomorrow.
[2020-04-24] MEDS: ceFAZolin 2gm in dextrose, iso 50 ML IV SCH ×2 (17:23→23:37)
[2020-04-24 18:00] VITALS: BP 147/60
--- NOTE | 2020-04-24 18:11 | NUR ---
Gave report to Chuyita BROWN, transferred care.
--- NOTE | 2020-04-24 18:30 | NUR ---
Patient in room ORTHO 4024. I have received report from Lavern BROWN and had the opportunity to ask questions and assume patient care.
[2020-04-24] MEDS ORDERED: acetaminophen 325mg tablet PO PRN (21:55)
[2020-04-24 22:00] VITALS: BP 112/51
--- NOTE | 2020-04-24 22:16 | NUR ---
pt states he is not allergic to acetaminophen, that he was told by a MD after an episode of alcohol poisoning that he should avoid Tylenol on a routine basis.
[2020-04-25] MEDS: morphine 2 MG/ML inj. syringe IV PRN ×2 (05:17→11:42)
[2020-04-25] MEDS: HYDROcodone/acetaminophen 10/325mg tab PO PRN ×2 (05:50→16:57)
[2020-04-25 05:53] VITALS: BP 158/68
--- NOTE | 2020-04-25 06:32 | NUR ---
Problems reprioritized. Patient report given, questions answered & plan of care reviewed with Ivelisse BROWN.
--- NOTE | 2020-04-25 06:34 | NUR ---
Patient in room ORTHO 4024B. I have received report from KEVIN DUMONT and had the opportunity to ask questions and assume patient care.
[2020-04-25] MEDS: K and/or MAG REPLACEMENT MC SCH ×2 (08:00→20:00)
[2020-04-25] MEDS: ceFAZolin 2gm in dextrose, iso 50 ML IV SCH ×2 (08:35→16:53)
[2020-04-25] MEDS: oxyCODONE SR 10mg (sust. release) tab PO SCH ×2 (08:37→20:35)
[2020-04-25] MEDS: atorvastatin 10mg tablet PO SCH (08:37)
[2020-04-25] MEDS: allopurinol 100mg tablet PO SCH ×2 (08:37→20:34)
[2020-04-25] MEDS: lactobacillus rhamnosus 10,000 MMU CELLS/CAPSULE PO SCH ×2 (08:37→20:34)
[2020-04-25] MEDS: aspirin 81mg tablet.DR PO SCH (08:46)
[2020-04-25] MEDS: heparin, porcine 5000 units/ml vial SQ SCH ×2 (08:46→20:34)
[2020-04-25 10:00] VITALS: BP 124/60
[2020-04-25] MEDS: normal saline 1000ml 1,000 ML IV SCH ×2 (11:51→20:34)
[2020-04-25 18:00] VITALS: BP 164/72
--- NOTE | 2020-04-25 18:04 | NUR ---
Problems reprioritized. Patient report given, questions answered & plan of care reviewed with KEVIN SHARPE.
--- NOTE | 2020-04-25 18:25 | NUR ---
Patient in room ORTHO 4024. I have received report from Ivelisse BROWN and had the opportunity to ask questions and assume patient care.
[2020-04-25 22:00] VITALS: BP 141/66
[2020-04-26] VITALS (23 sets, daily range): BP systolic 92–165; BP diastolic 50–85
[2020-04-26] MEDS: ceFAZolin 2gm in dextrose, iso 50 ML IV SCH ×4 (00:26→23:53)
[2020-04-26] MEDS: HYDROcodone/acetaminophen 10/325mg tab PO PRN (00:27)
[2020-04-26] MEDS: normal saline 1000ml 1,000 ML IV SCH ×4 (04:10→23:53)
--- NOTE | 2020-04-26 06:22 | NUR ---
Problems reprioritized. Patient report given, questions answered & plan of care reviewed with Viridiana BROWN.
[2020-04-26] MEDS: aspirin 81mg tablet.DR PO SCH (08:00)
[2020-04-26] MEDS: K and/or MAG REPLACEMENT MC SCH ×3 (08:00→20:00)
[2020-04-26] MEDS: heparin, porcine 5000 units/ml vial SQ SCH ×2 (08:00→20:51)
[2020-04-26] MEDS: oxyCODONE SR 10mg (sust. release) tab PO SCH ×2 (08:06→20:51)
[2020-04-26] MEDS ORDERED: LIDOcaine 1%/PF 5ML 10 MG/ML VIAL ONE (09:16)
[2020-04-26] MEDS ORDERED: fentaNYL/PF 50MCG/1 ML 2ML syringe ONE ×5 (09:17→17:35)
[2020-04-26] MEDS ORDERED: midazolam 2 mg/2 ml injection ONE ×4 (09:17→17:01)
[2020-04-26] MEDS ORDERED: iohexol 300mg/ml 100ml inj. ONE ×2 (09:17→11:04)
[2020-04-26] MEDS ORDERED: heparin 1,000 UNITS/NS 500ml 500 ML ONE ×2 (09:17→10:51)
[2020-04-26] MEDS ORDERED: hydrALAZINE 20mg/ml inj. IV ONE (09:48)
[2020-04-26] MEDS ORDERED: heparin 1,000unit/ml 10ml vial 10 ML ONE (10:01)
--- NOTE | 2020-04-26 12:20 | NUR ---
Reassessment: Pt PO improving to 75-100% avg regular diet past 3 days meeting needs. LBM 04/24. Pending angiogram today for possible limb ischemia w/ non-healing toe arterial ulcer per MD note. Will continue to monitor for additional protein needs. Rec: 1. continue regular diet 2. monitor for additional protein needs 3. routine bowel care 4. scaled wt this admit Addendum: 04/26/20 at [address] Amended: Links added.
[2020-04-26] MEDS: lactobacillus rhamnosus 10,000 MMU CELLS/CAPSULE PO SCH ×2 (12:26→20:50)
[2020-04-26] MEDS: atorvastatin 10mg tablet PO SCH (12:26)
[2020-04-26] MEDS: allopurinol 100mg tablet PO SCH ×2 (12:26→20:50)
[2020-04-26 15:40] LABS: BASOPHILS # (AUTO) 0.1 X10'3 (0-0.2); BASOPHILS % (AUTO) 0.6 % (0-1); EOSINOPHILS # (AUTO) 0.1 X10'3 (0-0.9); EOSINOPHILS % (AUTO) 1.2 % (0-6); HEMATOCRIT 31.5 % (42.0-52.0); HEMOGLOBIN 10.6 g/dl (14.0-17.9); LYMPHOCYTES # (AUTO) 1.7 X10'3 (1.1-4.8); LYMPHOCYTES % (AUTO) 16.9 % (21-51); MEAN CORPUSCULAR HEMOGLOBIN 31.7 PG (27.0-31.0); MEAN CORPUSCULAR HGB CONC 33.5 g/dL (33.0-36.5); MEAN CORPUSCULAR VOLUME 94.6 FL (78-98); MEAN PLATELET VOLUME 7.2 FL (7.4-10.4); MONOCYTES # (AUTO) 1.1 X10'3 (0-0.9); MONOCYTES % (AUTO) 10.4 % (2-12); NEUTROPHILS # (AUTO) 7.3 X10'3 (1.8-7.7); NEUTROPHILS % (AUTO) 70.9 % (42-75); PLATELET COUNT 683 X10'3 (140-440); RED BLOOD COUNT 3.33 X10'6 (4.70-6.10); RED CELL DISTRIBUTION WIDTH 13.8 % (11.5-14.5); WHITE BLOOD COUNT 10.2 X10'3 (4.5-11.0)
[2020-04-26 15:55] LABS: ALANINE AMINOTRANSFERASE 14 U/L (12-78); ALBUMIN 1.5 G/DL (3.4-5.0); ALBUMIN/GLOBULIN RATIO 0.3 (1.1-1.5); ALKALINE PHOSPHATASE 127 IU/L (46-116); ANION GAP 9 (8-16); ASPARTATE AMINO TRANSFERASE 15 U/L (10-37); BILIRUBIN,TOTAL 0.2 MG/DL (0.1-1.0); BLOOD UREA NITROGEN 7 MG/DL (7-18); BUN/CREATININE RATIO 9.9 (5.4-32.0); CALCIUM 6.6 MG/DL (8.5-10.1); CHLORIDE 105 MMOL/L (99-107); CREATININE 0.71 MG/DL (0.60-1.10); GLUCOSE 81 MG/DL (70-104); SODIUM 137 MMOL/L (135-145); TOTAL CARBON DIOXIDE 23.4 MMOL/L (24-32); TOTAL PROTEIN 5.9 G/DL (6.4-8.2); eGFR > 90 ML/MIN
[2020-04-26] MEDS ORDERED: magnesium Cl slow-release 64mg tablet PO PRN (16:05)
[2020-04-26] MEDS ORDERED: magnesium 4gm in 100ml NS 100 ML IV PRN (16:05)
[2020-04-26] MEDS ORDERED: potassium Cl 20 mEq SR tablet PO PRN (16:05)
[2020-04-26] MEDS ORDERED: potassium CL 10mEq/100ml bag 100 ML IV PRN (16:05)
[2020-04-26 16:09] LABS: LARGE PLATELETS FEW; PLATELET ESTIMATE INCREASED
[2020-04-26] MEDS ORDERED: BUPIVAcaine/PF 2.5 mg/ml (0.25%) 30ml vial ONE (16:38)
[2020-04-26] MEDS ORDERED: bacitracin 15gm ointment TP ONE (16:38)
[2020-04-26] MEDS ORDERED: ceFAZolin 1000mg inj ONE (16:38)
[2020-04-26] MEDS ORDERED: sevoflurane 250ml liquid IH ONE (17:00)
[2020-04-26] MEDS ORDERED: propofol inj 20 ML IV ONE (17:02)
[2020-04-26] MEDS ORDERED: ROPIVAcaine 0.5% (5mg/ml) 30ml vial ONE (17:02)
[2020-04-26] MEDS ORDERED: LIDOcaine 2% (20mg/ml) 5ml vial ONE (17:02)
[2020-04-26] MEDS ORDERED: morphine 2 MG/ML inj. syringe IV PRN (17:30)
[2020-04-26] MEDS ORDERED: meperidine/PF 25mg/ml syringe IV PRN ×3 (17:30)
[2020-04-26] MEDS ORDERED: ringers solution, lacted 1,000 ML IV SCH (17:30)
[2020-04-26] MEDS ORDERED: ondansetron/PF 4mg/2ml inj IV PRN (17:30)
[2020-04-26] MEDS ORDERED: proCHLORperazine 10 MG/2 ml inj IV PRN (17:30)
[2020-04-26] MEDS ORDERED: morphine 4 MG/ML inj SYRINge IV PRN (17:30)
--- NOTE | 2020-04-26 18:15 | NUR ---
Received from OR via BED, accompanied by Anesthesiologist DR BROOKS and report given by Anesthesiolgist. PATIENT A&OX4, DENIES PAIN, V/S WNL, NEUROVASCULAR CHECKS INTACT, 20G PIV LUE, SCD ON, DRESSING TO RIGHT 5TH TOE AREA W/ WV AT 125 CONTINOUS SUCTION WITH NO LEAKS DETECTED AND SCANT OUTPUT CDI ELEVATED .
--- NOTE | 2020-04-26 18:22 | NUR ---
Problems reprioritized. Patient report given, questions answered & plan of care reviewed with Elizabeth BROWN.
[2020-04-26] MEDS ORDERED: ePHEDrine 50MG/ML INJ. ONE (18:24)
--- NOTE | 2020-04-26 18:50 | NUR ---
Patient in room ORTHO 4024. I have received report from Yanick BROWN and had the opportunity to ask questions and assume patient care.
--- NOTE | 2020-04-26 18:55 | NUR ---
PATIENT A&OX4, DENIES PAIN, V/S WNL, NEUROVASCULAR CHECKS INTACT, 20G PIV LUE, SCD ON, DRESSING TO RIGHT WRIST CDI ELEVATED WITH ICEBAG APPLIED. PATIENT TAKEN TO 4024B WITH ALL BELONGINGS AND HOOKED UP TO MONITORS IN ROOM AND REPORT GIVEN TO ESCORT SERVICE ATTENDANT WHO HAS TAKEN OVER PATIENT CARE.
[2020-04-26] MEDS: potassium Cl 20 mEq SR tablet PO PRN (20:51)
[2020-04-27 02:00] VITALS: BP 139/55
[2020-04-27] MEDS: HYDROcodone/acetaminophen 10/325mg tab PO PRN ×3 (02:24→22:03)
[2020-04-27] MEDS: potassium Cl 20 mEq SR tablet PO PRN (02:39)
[2020-04-27] MEDS: morphine 2 MG/ML inj. syringe IV PRN ×3 (05:44→15:43)
[2020-04-27 06:19] LABS: BASOPHILS # (AUTO) 0.1 X10'3 (0-0.2); EOSINOPHILS # (AUTO) 0.3 X10'3 (0-0.9); LYMPHOCYTES % (AUTO) 16.6 % (21-51); MONOCYTES # (AUTO) 1.2 X10'3 (0-0.9)
[2020-04-27 06:20] LABS: BASOPHILS % (AUTO) 0.8 % (0-1); EOSINOPHILS % (AUTO) 2.4 % (0-6); HEMATOCRIT 31.8 % (42.0-52.0); HEMOGLOBIN 10.4 g/dl (14.0-17.9); LYMPHOCYTES # (AUTO) 1.9 X10'3 (1.1-4.8); MEAN CORPUSCULAR HEMOGLOBIN 30.9 PG (27.0-31.0); MEAN CORPUSCULAR HGB CONC 32.9 g/dL (33.0-36.5); MEAN CORPUSCULAR VOLUME 93.9 FL (78-98); MEAN PLATELET VOLUME 7.5 FL (7.4-10.4); MONOCYTES % (AUTO) 10.6 % (2-12); NEUTROPHILS # (AUTO) 8.2 X10'3 (1.8-7.7); NEUTROPHILS % (AUTO) 69.6 % (42-75); PLATELET COUNT 760 X10'3 (140-440); RED BLOOD COUNT 3.38 X10'6 (4.70-6.10); RED CELL DISTRIBUTION WIDTH 14.2 % (11.5-14.5); WHITE BLOOD COUNT 11.7 X10'3 (4.5-11.0)
[2020-04-27 06:33] LABS: ALANINE AMINOTRANSFERASE 15 U/L (12-78); ALBUMIN 1.9 G/DL (3.4-5.0); ALBUMIN/GLOBULIN RATIO 0.4 (1.1-1.5); ALKALINE PHOSPHATASE 161 IU/L (46-116); ANION GAP 8 (8-16); ASPARTATE AMINO TRANSFERASE 25 U/L (10-37); BILIRUBIN,TOTAL 0.3 MG/DL (0.1-1.0); BLOOD UREA NITROGEN 9 MG/DL (7-18); BUN/CREATININE RATIO 9.6 (5.4-32.0); CALCIUM 8.3 MG/DL (8.5-10.1); CHLORIDE 101 MMOL/L (99-107); CREATININE 0.94 MG/DL (0.60-1.10); GLUCOSE 100 MG/DL (70-104); MAGNESIUM 1.6 MG/DL (1.5-2.4); POTASSIUM 4.6 MMOL/L (3.5-5.1); SODIUM 133 MMOL/L (135-145); TOTAL CARBON DIOXIDE 23.7 MMOL/L (24-32); TOTAL PROTEIN 7.3 G/DL (6.4-8.2); eGFR 80 ML/MIN
--- NOTE | 2020-04-27 06:37 | NUR ---
Problems reprioritized. Patient report given, questions answered & plan of care reviewed with Jie BROWN.
[2020-04-27 06:44] VITALS: BP 140/65
[2020-04-27] MEDS: aspirin 81mg tablet.DR PO SCH (07:25)
[2020-04-27] MEDS: allopurinol 100mg tablet PO SCH ×2 (07:25→19:26)
[2020-04-27] MEDS: atorvastatin 10mg tablet PO SCH (07:25)
[2020-04-27] MEDS: lactobacillus rhamnosus 10,000 MMU CELLS/CAPSULE PO SCH ×2 (07:25→19:26)
[2020-04-27] MEDS: heparin, porcine 5000 units/ml vial SQ SCH ×2 (07:25→19:27)
[2020-04-27] MEDS: oxyCODONE SR 10mg (sust. release) tab PO SCH ×2 (07:25→19:26)
[2020-04-27] MEDS: K and/or MAG REPLACEMENT MC SCH ×3 (08:00→19:24)
[2020-04-27] MEDS: ceFAZolin 2gm in dextrose, iso 50 ML IV SCH ×2 (08:16→15:43)
[2020-04-27 10:05] VITALS: BP 147/67
--- NOTE | 2020-04-27 12:05 | NUR ---
Student documentation: I have reviewed all interventions, assessments performed and documented by Petra Bee. Student Medication Administration: For this medication-pass time frame, all medication were reviewed, dispensed, administered and documented per hospital policy by Petra Bee.
--- NOTE | 2020-04-27 13:21 | NUR ---
Spoke with Amie FERRO about patient increasing platelet counts. She will discuss with MD Huffman.
[2020-04-27] MEDS: normal saline 1000ml 1,000 ML IV SCH (13:45)
--- NOTE | 2020-04-27 14:51 | NUR ---
PAGER ID: [phone] MESSAGE: [id number] Yvrose Grimes- Noticed patients platelet counts are trending upward. Patient is on heparin q 12 hours. Jie [id number]
--- NOTE | 2020-04-27 15:58 | NUR ---
Student documentation: I have reviewed and agree assessment performed and documented by Lanie BERRY [facility].
--- NOTE | 2020-04-27 16:00 | NUR ---
Spoke with Dr Kaufman, she stated not to worry about patients increasing platelet count.
[2020-04-27 18:00] VITALS: BP 152/71
--- NOTE | 2020-04-27 18:19 | NUR ---
Problems reprioritized. Patient report given, questions answered & plan of care reviewed with Elizabeth BROWN.
--- NOTE | 2020-04-27 18:49 | NUR ---
Patient in room ORTHO 4024. I have received report from Jie BROWN and had the opportunity to ask questions and assume patient care.
[2020-04-27 22:00] VITALS: BP 158/64
[2020-04-28] MEDS: ceFAZolin 2gm in dextrose, iso 50 ML IV SCH ×2 (00:07→07:09)
[2020-04-28] MEDS: normal saline 1000ml 1,000 ML IV SCH (03:49)
[2020-04-28] MEDS: HYDROcodone/acetaminophen 10/325mg tab PO PRN ×2 (04:53→12:58)
--- NOTE | 2020-04-28 06:25 | NUR ---
Problems reprioritized. Patient report given, questions answered & plan of care reviewed with Jie BROWN.
[2020-04-28 06:36] VITALS: BP 152/65
[2020-04-28] MEDS: allopurinol 100mg tablet PO SCH (07:08)
[2020-04-28] MEDS: atorvastatin 10mg tablet PO SCH (07:08)
[2020-04-28] MEDS: oxyCODONE SR 10mg (sust. release) tab PO SCH (07:08)
[2020-04-28] MEDS: aspirin 81mg tablet.DR PO SCH (07:08)
[2020-04-28] MEDS: lactobacillus rhamnosus 10,000 MMU CELLS/CAPSULE PO SCH (07:08)
[2020-04-28] MEDS: heparin, porcine 5000 units/ml vial SQ SCH (07:09)
[2020-04-28 07:52] LABS: BASOPHILS # (AUTO) 0.1 X10'3 (0-0.2); BASOPHILS % (AUTO) 0.9 % (0-1); EOSINOPHILS # (AUTO) 0.4 X10'3 (0-0.9); EOSINOPHILS % (AUTO) 4.2 % (0-6); HEMATOCRIT 32.6 % (42.0-52.0); HEMOGLOBIN 10.9 g/dl (14.0-17.9); LYMPHOCYTES # (AUTO) 2.3 X10'3 (1.1-4.8); LYMPHOCYTES % (AUTO) 22.9 % (21-51); MEAN CORPUSCULAR HEMOGLOBIN 31.6 PG (27.0-31.0); MEAN CORPUSCULAR HGB CONC 33.5 g/dL (33.0-36.5); MEAN CORPUSCULAR VOLUME 94.1 FL (78-98); MEAN PLATELET VOLUME 7.3 FL (7.4-10.4); MONOCYTES # (AUTO) 1.1 X10'3 (0-0.9); MONOCYTES % (AUTO) 11.1 % (2-12); NEUTROPHILS # (AUTO) 6.1 X10'3 (1.8-7.7); NEUTROPHILS % (AUTO) 60.9 % (42-75); PLATELET COUNT 834 X10'3 (140-440); RED BLOOD COUNT 3.47 X10'6 (4.70-6.10); RED CELL DISTRIBUTION WIDTH 14.1 % (11.5-14.5)
[2020-04-28] MEDS: K and/or MAG REPLACEMENT MC SCH (08:00)
[2020-04-28 08:16] LABS: ALANINE AMINOTRANSFERASE 14 U/L (12-78); ALBUMIN 1.9 G/DL (3.4-5.0); ALBUMIN/GLOBULIN RATIO 0.4 (1.1-1.5); ALKALINE PHOSPHATASE 155 IU/L (46-116); ANION GAP 9 (8-16); ASPARTATE AMINO TRANSFERASE 24 U/L (10-37); BILIRUBIN,TOTAL 0.2 MG/DL (0.1-1.0); BLOOD UREA NITROGEN 6 MG/DL (7-18); CALCIUM 8.2 MG/DL (8.5-10.1); CHLORIDE 102 MMOL/L (99-107); GLUCOSE 102 MG/DL (70-104); MAGNESIUM 1.6 MG/DL (1.5-2.4); SODIUM 136 MMOL/L (135-145); TOTAL CARBON DIOXIDE 25.5 MMOL/L (24-32); TOTAL PROTEIN 7.3 G/DL (6.4-8.2); eGFR 75 ML/MIN
[2020-04-28 09:52] VITALS: BP 153/66
[2020-04-28] MEDS: morphine 2 MG/ML inj. syringe IV PRN (09:59)
[2020-04-28] MEDS ORDERED: HYDR-4383 PO ×2 (12:38→12:39)
[2020-04-28] MEDS ORDERED: FERR324T4 PO (12:39)
[2020-04-28] MEDS ORDERED: DOCU-148 PO (12:40)
[2020-04-28] MEDS ORDERED: CEPH250C PO (12:42)
[2020-04-28 13:52] LABS: % IRON SATURATION 15 % (11-46); IRON 23 UG/DL (53-167); TOTAL IRON BINDING CAPACITY 155 UG/DL (259-388)
--- NOTE | 2020-04-28 15:43 | NUR ---
Patient ready for discharge. Wound vac was removed, bulky dressing was applied. Patient cleared PT. Was discharged with Home health services. Narcotic prescription was given to patient. PIV removed, cannula intact. All belongings sent home with patient. Discharge instructions reviewed with patient. Told patient about follow up appointment needed with Dr. Huffman at the wound care clinic. Prescriptions called to zeke feldman. Patient sent home with crutches.
== END 2020-04-28 15:44 | disposition home health service (06) | DRG 474 ==
LOC: ER 12:33 → ED HOLD 16:06 → SUR 3N 19:50 → ORTHO 4S 04-21 06:35
PROVIDERS: ADMIT Family Medicine; ATTEND Family Medicine
PROC: B4201ZZ Computerized Tomography (CT Scan) of Abdominal Aorta using Low Osmolar Contrast (ICD-10-PCS; 2020-04-21)
PROC: B4241ZZ Computerized Tomography (CT Scan) of Superior Mesenteric Artery using Low Osmolar Contrast (ICD-10-PCS; 2020-04-21)
PROC: B4281ZZ Computerized Tomography (CT Scan) of Bilateral Renal Arteries using Low Osmolar Contrast (ICD-10-PCS; 2020-04-21)
PROC: B42C1ZZ Computerized Tomography (CT Scan) of Pelvic Arteries using Low Osmolar Contrast (ICD-10-PCS; 2020-04-21)
PROC: B42H1ZZ Computerized Tomography (CT Scan) of Bilateral Lower Extremity Arteries using Low Osmolar Contrast (ICD-10-PCS; 2020-04-21)
PROC: B4211ZZ Computerized Tomography (CT Scan) of Celiac Artery using Low Osmolar Contrast (ICD-10-PCS; 2020-04-21)
PROC: B42H1ZZ Computerized Tomography (CT Scan) of Bilateral Lower Extremity Arteries using Low Osmolar Contrast (ICD-10-PCS; 2020-04-21)
PROC: 0Y6M0ZF Detachment at Right Foot, Partial 5th Ray, Open Approach (ICD-10-PCS; 2020-04-26)
PROC: 047P3ZZ Dilation of Right Anterior Tibial Artery, Percutaneous Approach (ICD-10-PCS; 2020-04-26)
PROC: 047T3ZZ Dilation of Right Peroneal Artery, Percutaneous Approach (ICD-10-PCS; 2020-04-26)
PROC: B41G1ZZ Fluoroscopy of Left Lower Extremity Arteries using Low Osmolar Contrast (ICD-10-PCS; 2020-04-26)
PROC: B41F1ZZ Fluoroscopy of Right Lower Extremity Arteries using Low Osmolar Contrast (ICD-10-PCS; 2020-04-26)
PROC: 047M3ZZ Dilation of Right Popliteal Artery, Percutaneous Approach (ICD-10-PCS; principal; 2020-04-26 17:00)
DX: M86.171 Other acute osteomyelitis, right ankle and foot (principal); E43 Unspecified severe protein-calorie malnutrition; M00.9 Pyogenic arthritis, unspecified; E87.1 Hypo-osmolality and hyponatremia; M87.874 Other osteonecrosis, right foot; L03.115 Cellulitis of right lower limb; E11.69 Type 2 diabetes mellitus with other specified complication; B95.8 Unspecified staphylococcus as the cause of diseases classified elsewhere; E11.51 Type 2 diabetes mellitus with diabetic peripheral angiopathy without gangrene; M10.9 Gout, unspecified; F12.90 Cannabis use, unspecified, uncomplicated; M89.571 Osteolysis, right ankle and foot; B95.61 Methicillin susceptible Staphylococcus aureus infection as the cause of diseases classified elsewhere; E11.621 Type 2 diabetes mellitus with foot ulcer; E78.5 Hyperlipidemia, unspecified; F17.210 Nicotine dependence, cigarettes, uncomplicated; L97.519 Non-pressure chronic ulcer of other part of right foot with unspecified severity; Z88.6 Allergy status to analgesic agent; Z79.899 Other long term (current) drug therapy; Z79.82 Long term (current) use of aspirin; Z71.6 Tobacco abuse counseling; E87.6 Hypokalemia; Z68.25 Body mass index [BMI] 25.0-25.9, adult
CPT/HCPCS: 36415; 37228; 73630; 73700; 80048; 80053; 80202; 80305; 83540; 83550; 83605; 83735; 84145; 85008; 85025; 85651; 86140; 87040; 87070; 87077; 87081; 87186; 93005; 93922; 93926; 93971; 96374; 97110; 97116; 97161; 97530; 99152; 99153; 99285; A4215; A4618; A6550; A7000; C1725; C1760; C1769; C1887; C1894; G0378; J0360; J0690; J1644; J1956; J2001; J2250; J2270; J2543; J2704; J2795; J3010; J3370; J3490; J7030; J7120; Q9967

== ENCOUNTER 2020-05-04 13:47 | Outpatient (CLI) | payer MEDICARE, MEDICAID ==
[~2020-05-04 13:47] MED LIST changes: -ALBU8.5H8 INH; +ALLO100T25 PO; +ASPI-611 PO; +ATOR10TA PO; +CEPH250C PO; +DOCU-148 PO; +FERR324T4 PO; +HYDR-4383 PO; -IBUP-24 PO; -LACT1CAP65 PO
[2020-05-04] MEDS ORDERED: LIDOcaine 2% 5ml jelly ONE (15:03)
== END 2020-05-04 23:59 | disposition home or self-care (01) ==
LOC: WOUND CARE 13:47
PROVIDERS: ATTEND Nurse Practitioner
DX: T81.89XA Other complications of procedures, not elsewhere classified, initial encounter (principal); E11.622 Type 2 diabetes mellitus with other skin ulcer; L97.412 Non-pressure chronic ulcer of right heel and midfoot with fat layer exposed; M10.071 Idiopathic gout, right ankle and foot; M10.9 Gout, unspecified; E78.5 Hyperlipidemia, unspecified; E87.1 Hypo-osmolality and hyponatremia; B95.61 Methicillin susceptible Staphylococcus aureus infection as the cause of diseases classified elsewhere; E43 Unspecified severe protein-calorie malnutrition; M00.9 Pyogenic arthritis, unspecified; M89.5 Osteolysis; M79.89 Other specified soft tissue disorders; F17.210 Nicotine dependence, cigarettes, uncomplicated; Z68.25 Body mass index [BMI] 25.0-25.9, adult; Z79.899 Other long term (current) drug therapy; Z79.82 Long term (current) use of aspirin; Y83.8 Other surgical procedures as the cause of abnormal reaction of the patient, or of later complication, without mention of misadventure at the time of the procedure; Y92.234 Operating room of hospital as the place of occurrence of the external cause
CPT/HCPCS: 97597

== ENCOUNTER 2020-05-11 13:40 | Outpatient (CLI) | payer MEDICARE, MEDICAID ==
[~2020-05-11 13:40] MED LIST changes: -CEPH250C PO
[2020-05-11] MEDS ORDERED: LIDOcaine 2% 5ml jelly ONE ×2 (14:29→14:45)
== END 2020-05-11 23:59 | disposition home or self-care (01) ==
LOC: WOUND CARE 13:40
PROVIDERS: ATTEND Nurse Practitioner
DX: T81.89XD Other complications of procedures, not elsewhere classified, subsequent encounter (principal); E11.622 Type 2 diabetes mellitus with other skin ulcer; L97.412 Non-pressure chronic ulcer of right heel and midfoot with fat layer exposed; E11.51 Type 2 diabetes mellitus with diabetic peripheral angiopathy without gangrene; M10.071 Idiopathic gout, right ankle and foot; E78.5 Hyperlipidemia, unspecified; E87.1 Hypo-osmolality and hyponatremia; B95.61 Methicillin susceptible Staphylococcus aureus infection as the cause of diseases classified elsewhere; E43 Unspecified severe protein-calorie malnutrition; M00.9 Pyogenic arthritis, unspecified; M89.5 Osteolysis; E11.69 Type 2 diabetes mellitus with other specified complication; M86.8X7 Other osteomyelitis, ankle and foot; E87.6 Hypokalemia; M79.89 Other specified soft tissue disorders; F17.210 Nicotine dependence, cigarettes, uncomplicated; F12.90 Cannabis use, unspecified, uncomplicated; F15.90 Other stimulant use, unspecified, uncomplicated; Z68.25 Body mass index [BMI] 25.0-25.9, adult; Z79.899 Other long term (current) drug therapy; Z79.82 Long term (current) use of aspirin; Z86.14 Personal history of Methicillin resistant Staphylococcus aureus infection; Y83.8 Other surgical procedures as the cause of abnormal reaction of the patient, or of later complication, without mention of misadventure at the time of the procedure
CPT/HCPCS: G0463

== ENCOUNTER 2020-05-26 13:30 | Outpatient (CLI) | payer MEDICARE, MEDICAID ==
[2020-05-26] MEDS ORDERED: LIDOcaine 2% 5ml jelly ONE (14:23)
== END 2020-05-26 23:59 | disposition home or self-care (01) ==
LOC: WOUND CARE 13:30 → EDSTATUS 13:30 → WOUND CARE 23:59
PROVIDERS: ATTEND Nurse Practitioner
DX: T81.89XD Other complications of procedures, not elsewhere classified, subsequent encounter (principal); E11.622 Type 2 diabetes mellitus with other skin ulcer; L97.412 Non-pressure chronic ulcer of right heel and midfoot with fat layer exposed; M10.071 Idiopathic gout, right ankle and foot; E11.51 Type 2 diabetes mellitus with diabetic peripheral angiopathy without gangrene; E11.69 Type 2 diabetes mellitus with other specified complication; M86.8X7 Other osteomyelitis, ankle and foot; E78.5 Hyperlipidemia, unspecified; E87.1 Hypo-osmolality and hyponatremia; B95.61 Methicillin susceptible Staphylococcus aureus infection as the cause of diseases classified elsewhere; E43 Unspecified severe protein-calorie malnutrition; M00.9 Pyogenic arthritis, unspecified; M89.5 Osteolysis; E87.6 Hypokalemia; M79.89 Other specified soft tissue disorders; F17.210 Nicotine dependence, cigarettes, uncomplicated; F12.90 Cannabis use, unspecified, uncomplicated; F15.90 Other stimulant use, unspecified, uncomplicated; Z68.25 Body mass index [BMI] 25.0-25.9, adult; Z79.899 Other long term (current) drug therapy; Z79.82 Long term (current) use of aspirin; Z86.14 Personal history of Methicillin resistant Staphylococcus aureus infection; Y83.8 Other surgical procedures as the cause of abnormal reaction of the patient, or of later complication, without mention of misadventure at the time of the procedure
CPT/HCPCS: 97597; G0463

== ENCOUNTER 2020-09-03 09:51 | Emergency (ER) | payer MEDICARE, MEDICAID ==
[~2020-09-03] VITALS: Ht 160 cm; Wt 57.2 kg
[2020-09-03 11:16] LABS: BASOPHILS % (AUTO) 0.7 % (0-1); EOSINOPHILS # (AUTO) 0.6 X10'3 (0-0.9); EOSINOPHILS % (AUTO) 8.7 % (0-6); HEMATOCRIT 42.8 % (42.0-52.0); HEMOGLOBIN 14.2 g/dl (14.0-17.9); LYMPHOCYTES # (AUTO) 2.3 X10'3 (1.1-4.8); LYMPHOCYTES % (AUTO) 32.5 % (21-51); MEAN CORPUSCULAR HEMOGLOBIN 32.1 PG (27.0-31.0); MEAN CORPUSCULAR HGB CONC 33.2 g/dL (33.0-36.5); MEAN CORPUSCULAR VOLUME 96.8 FL (78-98); MEAN PLATELET VOLUME 7.6 FL (7.4-10.4); MONOCYTES # (AUTO) 0.5 X10'3 (0-0.9); MONOCYTES % (AUTO) 7.6 % (2-12); NEUTROPHILS # (AUTO) 3.6 X10'3 (1.8-7.7); NEUTROPHILS % (AUTO) 50.5 % (42-75); PLATELET COUNT 336 X10'3 (140-440); RED BLOOD COUNT 4.42 X10'6 (4.70-6.10); RED CELL DISTRIBUTION WIDTH 15.5 % (11.5-14.5); WHITE BLOOD COUNT 7.1 X10'3 (4.5-11.0)
[2020-09-03 11:21] LABS: CLARITY,URINE CLEAR (Clear); COLOR,URINE YELLOW (Yellow); GLUCOSE, URINE NEGATIVE (Neg); KETONES,URINE NEGATIVE (Neg); LEUKOCYTE ESTERASE ,URINE NEGATIVE (Neg); NITRITES, URINE NEGATIVE (Neg); OCCULT BLOOD,URINE NEGATIVE (Neg); PROTEIN,URINE NEGATIVE (Neg); UROBILINOGEN,URINE 0.2 E.U/dL (0.2-1.0)
[2020-09-03 11:23] LABS: UA COLLECTION TYPE CLN CATCH MIDSTREAM
[2020-09-03 11:35] LABS: ALANINE AMINOTRANSFERASE 15 U/L (12-78); ALBUMIN 3.1 G/DL (3.4-5.0); ALBUMIN/GLOBULIN RATIO 0.7 (1.1-1.5); ALKALINE PHOSPHATASE 104 IU/L (46-116); ANION GAP 8 (8-16); ASPARTATE AMINO TRANSFERASE 22 U/L (10-37); BILIRUBIN,TOTAL 0.2 MG/DL (0.1-1.0); BLOOD UREA NITROGEN 11 MG/DL (7-18); BUN/CREATININE RATIO 10.2 (5.4-32.0); C-REACTIVE PROTEIN 1.95 MG/DL (0.0-0.5); CALCIUM 8.7 MG/DL (8.5-10.1); CHLORIDE 104 MMOL/L (99-107); CREATININE 1.08 MG/DL (0.60-1.10); GLUCOSE 95 MG/DL (70-104); MAGNESIUM 1.7 MG/DL (1.5-2.4); POTASSIUM 3.7 MMOL/L (3.5-5.1); SODIUM 139 MMOL/L (135-145); TOTAL CARBON DIOXIDE 26.7 MMOL/L (24-32); TOTAL PROTEIN 7.7 G/DL (6.4-8.2); eGFR 68 ML/MIN
[2020-09-03] MEDS ORDERED: clindamycin 600mg/D5W 50ml 50 ML IV ONE (12:35)
[2020-09-03] MEDS ORDERED: traMADol 50MG tablet PO ONE (13:00)
[2020-09-03] MEDS ORDERED: CLIN-97 PO (13:00)
[2020-09-03] MEDS ORDERED: TRAM50TA2 PO (13:00)
[2020-09-03 13:46] VITALS: BP 138/72
== END 2020-09-03 13:47 | disposition home or self-care (01) ==
LOC: ER 09:51
DX: L03.031 Cellulitis of right toe (principal); M10.9 Gout, unspecified; F12.90 Cannabis use, unspecified, uncomplicated; F17.200 Nicotine dependence, unspecified, uncomplicated; Z79.82 Long term (current) use of aspirin; Z79.899 Other long term (current) drug therapy; Z88.8 Allergy status to other drugs, medicaments and biological substances; Z72.89 Other problems related to lifestyle
CPT/HCPCS: 36415; 73660; 80053; 81003; 83605; 83735; 84145; 85025; 85651; 86140; 87040; 96365; 99284; J3490

== ENCOUNTER 2021-04-16 12:54 | Emergency (ER) | payer MEDICARE, MEDICAID ==
[~2021-04-16] VITALS: Ht 160 cm; Wt 59.9 kg
[~2021-04-16 12:54] MED LIST changes: +CLIN-97 PO
[2021-04-16 14:06] LABS: BASOPHILS % (AUTO) 0.6 % (0-1); EOSINOPHILS # (AUTO) 0.4 X10'3 (0-0.9); EOSINOPHILS % (AUTO) 5.5 % (0-6); HEMATOCRIT 42.4 % (42.0-52.0); LYMPHOCYTES # (AUTO) 1.9 X10'3 (1.1-4.8); LYMPHOCYTES % (AUTO) 28.9 % (21-51); MEAN CORPUSCULAR HEMOGLOBIN 32.3 PG (27.0-31.0); MEAN CORPUSCULAR HGB CONC 33.1 g/dL (33.0-36.5); MEAN CORPUSCULAR VOLUME 97.7 FL (78-98); MEAN PLATELET VOLUME 7.8 FL (7.4-10.4); MONOCYTES # (AUTO) 0.6 X10'3 (0-0.9); NEUTROPHILS # (AUTO) 3.8 X10'3 (1.8-7.7); PLATELET COUNT 303 X10'3 (140-440); RED BLOOD COUNT 4.34 X10'6 (4.70-6.10); RED CELL DISTRIBUTION WIDTH 14.7 % (11.5-14.5); WHITE BLOOD COUNT 6.7 X10'3 (4.5-11.0)
[2021-04-16 14:17] LABS: PARTIAL THROMBOPLASTIN TIME 29 SECONDS (22-32)
[2021-04-16 14:21] LABS: ALANINE AMINOTRANSFERASE 24 U/L (12-78); ALBUMIN 3.1 G/DL (3.4-5.0); ALBUMIN/GLOBULIN RATIO 0.7 (1.1-1.5); ALKALINE PHOSPHATASE 121 IU/L (46-116); ANION GAP 12 (8-16); ASPARTATE AMINO TRANSFERASE 25 U/L (10-37); BILIRUBIN,TOTAL 0.3 MG/DL (0.1-1.0); BLOOD UREA NITROGEN 7 MG/DL (7-18); BUN/CREATININE RATIO 7.1 (5.4-32.0); CALCIUM 8.4 MG/DL (8.5-10.1); CHLORIDE 101 MMOL/L (99-107); CREATININE 0.98 MG/DL (0.60-1.10); GLUCOSE 124 MG/DL (70-104); POTASSIUM 3.7 MMOL/L (3.5-5.1); SODIUM 138 MMOL/L (135-145); TOTAL PROTEIN 7.8 G/DL (6.4-8.2); eGFR 76 ML/MIN
[2021-04-16] MEDS ORDERED: iohexol 350MG/ML 100ml bottle IV ONE (14:45)
--- NOTE | 2021-04-16 15:15 | NUR ---
pt called asking for information. pt at cta scan. calllback number [phone]
[2021-04-16 16:10] LABS: CLARITY,URINE CLEAR (Clear); COLOR,URINE STRAW (Yellow); UA COLLECTION TYPE URINAL
[2021-04-16 16:13] LABS: GLUCOSE, URINE NEGATIVE (Neg); KETONES,URINE NEGATIVE (Neg); LEUKOCYTE ESTERASE ,URINE NEGATIVE (Neg); NITRITES, URINE NEGATIVE (Neg); OCCULT BLOOD,URINE NEGATIVE (Neg); PH,URINE 6.5 (4.8-8.0); PROTEIN,URINE NEGATIVE (Neg); UROBILINOGEN,URINE 0.2 E.U/dL (0.2-1.0)
[2021-04-16] MEDS ORDERED: NO HOME MEDS (17:05)
[2021-04-16] MEDS ORDERED: metoclopramide 5 mg/ml inj IV PRN (17:10)
[2021-04-16] MEDS ORDERED: glucagon, human recombinant 1mg kit SUBCUT PRN (17:10)
[2021-04-16] MEDS ORDERED: magnesium 4gm in 100ml NS 100 ML IV PRN (17:10)
[2021-04-16] MEDS ORDERED: mag hydrox/Alum hydrox/simeth 30ml oral suspension PO PRN (17:10)
[2021-04-16] MEDS ORDERED: morphine 2 MG/ML inj. syringe IV PRN ×2 (17:10)
[2021-04-16] MEDS ORDERED: dextrose ORAL solution 15 GM/59 ML bottle PO PRN ×2 (17:10)
[2021-04-16] MEDS ORDERED: acetaminophen 325mg tablet PO PRN (17:10)
[2021-04-16] MEDS ORDERED: magnesium Cl slow-release 64mg tablet PO PRN (17:10)
[2021-04-16] MEDS ORDERED: dextrose 50%-water 50ml dispensing syringe IV PRN ×2 (17:10)
[2021-04-16] MEDS ORDERED: magnesium hydroxide 30ml (MOM) UD suspension PO PRN (17:10)
[2021-04-16] MEDS ORDERED: ondansetron/PF 4mg/2ml inj IV PRN (17:10)
[2021-04-16] MEDS ORDERED: MESSAGE TO PHARMACY PO ONE (17:10)
[2021-04-16] MEDS ORDERED: magnesium 2GM in 50ml NS 50 ML IV PRN (17:10)
[2021-04-16] MEDS ORDERED: PERFLUTREN PROTEIN-A MICROSPHR (Optison) 0.22 MG/ML 3ML VIAL IV ONE (17:10)
[2021-04-16] MEDS ORDERED: potassium Cl 40MEQ/1/2NS 520ml 520 ML IV PRN ×2 (17:10)
[2021-04-16] MEDS ORDERED: insulin Lispro (HumaLOG) vial - multi-dose SQ SCH (17:10)
[2021-04-16] MEDS ORDERED: potassium Cl 20 mEq SR tablet PO PRN ×2 (17:10)
[2021-04-16] MEDS: normal saline 1000ml 1,000 ML IV SCH (17:36)
[2021-04-16] MEDS: clopidogrel 75mg tablet PO SCH (17:36)
[2021-04-16 17:48] LABS: HEMOGLOBIN A1C 7.1 % (4.5-6.2)
[2021-04-16] MEDS ORDERED: LORazepam 1 MG tablet PO PRN (17:55)
[2021-04-16] MEDS ORDERED: thiamine inj. 100 MG in normal saline 100ml IV soln 100 ML IV ONE (17:55)
[2021-04-16] MEDS ORDERED: haloperidol lactate 5mg/ml inj IM PRN (17:55)
[2021-04-16] MEDS ORDERED: haloperidol 5mg tablet PO PRN (17:55)
[2021-04-16] MEDS ORDERED: LORazepam 2 mg/ml vial IV PRN (17:55)
[2021-04-16] MEDS: thiamine 100mg tablet PO SCH (18:02)
[2021-04-16] MEDS: docusate sod 100mg capsule PO SCH (19:03)
[2021-04-16] MEDS: aspirin 81mg tab.chew PO SCH (19:03)
[2021-04-16] MEDS: nicotine 14mg patch - 24hr TD SCH (19:03)
[2021-04-16] MEDS: K and/or MAG REPLACEMENT MC SCH (20:03)
--- NOTE | 2021-04-16 20:30 | NUR ---
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
[2021-04-16] MEDS ORDERED: temazepam 15mg capsule PO PRN (21:00)
[2021-04-16] MEDS ORDERED: insulin glargine (Lantus) pen - multi-dose SQ SCH (21:00)
--- NOTE | 2021-04-17 00:01 | NUR ---
NEURO REMAINS INTACT; PT IN NAD; VSS; USED URINAL AT BEDSIDE WITH STEADY GAIT AND THEN AMBULATED TO RR TO HAVE BM
[2021-04-17 04:46] LABS: BASOPHILS % (AUTO) 0.7 % (0-1); EOSINOPHILS # (AUTO) 0.5 X10'3 (0-0.9); EOSINOPHILS % (AUTO) 7.7 % (0-6); HEMATOCRIT 41.1 % (42.0-52.0); HEMOGLOBIN 13.5 g/dl (14.0-17.9); LYMPHOCYTES # (AUTO) 2.6 X10'3 (1.1-4.8); LYMPHOCYTES % (AUTO) 39.2 % (21-51); MEAN CORPUSCULAR HEMOGLOBIN 32.2 PG (27.0-31.0); MEAN CORPUSCULAR VOLUME 97.6 FL (78-98); MEAN PLATELET VOLUME 7.8 FL (7.4-10.4); MONOCYTES # (AUTO) 0.7 X10'3 (0-0.9); MONOCYTES % (AUTO) 10.6 % (2-12); NEUTROPHILS # (AUTO) 2.8 X10'3 (1.8-7.7); NEUTROPHILS % (AUTO) 41.8 % (42-75); PLATELET COUNT 275 X10'3 (140-440); RED BLOOD COUNT 4.21 X10'6 (4.70-6.10); RED CELL DISTRIBUTION WIDTH 14.9 % (11.5-14.5); WHITE BLOOD COUNT 6.7 X10'3 (4.5-11.0)
[2021-04-17 04:49] LABS: ALANINE AMINOTRANSFERASE 22 U/L (12-78); ALBUMIN 2.9 G/DL (3.4-5.0); ALBUMIN/GLOBULIN RATIO 0.7 (1.1-1.5); ALKALINE PHOSPHATASE 115 IU/L (46-116); ANION GAP 10 (8-16); ASPARTATE AMINO TRANSFERASE 22 U/L (10-37); BILIRUBIN,TOTAL 0.4 MG/DL (0.1-1.0); BLOOD UREA NITROGEN 11 MG/DL (7-18); BUN/CREATININE RATIO 8.7 (5.4-32.0); CALCIUM 8.4 MG/DL (8.5-10.1); CHLORIDE 104 MMOL/L (99-107); CHOL/HDL RATIO 2.9 (0.00-4.99); CHOLESTEROL 174 MG/DL (0-200); CREATININE 1.27 MG/DL (0.60-1.10); GLUCOSE 97 MG/DL (70-104); HDL CHOLESTEROL 60 MG/DL (35-60); LDL CHOLESTEROL 102 MG/DL (50-100); MAGNESIUM 1.8 MG/DL (1.5-2.4); POTASSIUM 4.2 MMOL/L (3.5-5.1); SODIUM 139 MMOL/L (135-145); TOTAL CARBON DIOXIDE 24.8 MMOL/L (24-32); TOTAL PROTEIN 7.1 G/DL (6.4-8.2); TRIGLYCERIDES 73 MG/DL (20-135); eGFR 57 ML/MIN
--- NOTE | 2021-04-17 05:33 | NUR ---
PT NEURO STATUS CONTINUES TO REMAIN NORMAL AOX4 WITH NEGATIVE STROKE SCALE; PT IN NAD WITH VSS AT THIS TIME; WILL CTM AND REASSES.
[2021-04-17] MEDS: normal saline 1000ml 1,000 ML IV SCH (07:26)
[2021-04-17] MEDS ORDERED: nicotine 14mg patch - 24hr TD SCH (08:00)
[2021-04-17] MEDS: nicotine 14mg patch - 24hr TD SCH (08:00)
[2021-04-17] MEDS: K and/or MAG REPLACEMENT MC SCH (08:00)
[2021-04-17] MEDS ORDERED: atorvastatin 20mg tablet PO SCH (08:00)
[2021-04-17] MEDS ORDERED: folic acid 1mg tablet PO SCH (08:00)
[2021-04-17] MEDS ORDERED: multivitamins, therapeutics tablet PO SCH (08:00)
[2021-04-17] MEDS: thiamine 100mg tablet PO SCH (08:21)
[2021-04-17] MEDS: docusate sod 100mg capsule PO SCH (08:21)
[2021-04-17] MEDS: clopidogrel 75mg tablet PO SCH (08:21)
[2021-04-17] MEDS: aspirin 81mg tab.chew PO SCH (08:21)
--- NOTE | 2021-04-17 08:32 | NUR ---
GAVE UPDATE TO PT GIRLFRIEND
[2021-04-17] MEDS ORDERED: amLODIPine 5mg tablet PO SCH (08:35)
[2021-04-17 13:30] VITALS: BP 153/77
[2021-04-17] MEDS ORDERED: MULT-25 PO (14:01)
[2021-04-17] MEDS ORDERED: THIA50TA10 PO (14:01)
[2021-04-17] MEDS ORDERED: AMLO10TA13 PO (14:01)
[2021-04-17] MEDS ORDERED: ASPI81TA53 PO (14:01)
[2021-04-17] MEDS ORDERED: FOLI0.4T14 PO (14:01)
[2021-04-17] MEDS ORDERED: NICO-631 TD (14:01)
[2021-04-17] MEDS ORDERED: CLOP75TA34 PO (14:01)
[2021-04-17] MEDS ORDERED: ATOR40TA PO (14:01)
== END 2021-04-17 15:00 | disposition home or self-care (01) ==
LOC: ER 12:55 → UNDOADMIN 17:15 → ED HOLD 17:15 → UNDODISIN 04-17 15:00 → ER 04-17 15:00
PROC: B3251ZZ Computerized Tomography (CT Scan) of Bilateral Common Carotid Arteries using Low Osmolar Contrast (ICD-10-PCS; principal; 2021-04-16)
PROC: B32G1ZZ Computerized Tomography (CT Scan) of Bilateral Vertebral Arteries using Low Osmolar Contrast (ICD-10-PCS; 2021-04-16)
PROC: B32R1ZZ Computerized Tomography (CT Scan) of Intracranial Arteries using Low Osmolar Contrast (ICD-10-PCS; 2021-04-16)
PROC: B3281ZZ Computerized Tomography (CT Scan) of Bilateral Internal Carotid Arteries using Low Osmolar Contrast (ICD-10-PCS; 2021-04-16)
DX: I63.9 Cerebral infarction, unspecified (principal); E78.5 Hyperlipidemia, unspecified; F10.10 Alcohol abuse, uncomplicated; F17.210 Nicotine dependence, cigarettes, uncomplicated; F12.90 Cannabis use, unspecified, uncomplicated; G83.11 Monoplegia of lower limb affecting right dominant side; M10.9 Gout, unspecified; R29.704 NIHSS score 4; I10 Essential (primary) hypertension; R27.0 Ataxia, unspecified; I73.9 Peripheral vascular disease, unspecified; Z20.822 Contact with and (suspected) exposure to COVID-19; Z60.2 Problems related to living alone; Z79.02 Long term (current) use of antithrombotics/antiplatelets; Z79.82 Long term (current) use of aspirin; Z88.6 Allergy status to analgesic agent; Z88.5 Allergy status to narcotic agent; Z71.41 Alcohol abuse counseling and surveillance of alcoholic; Z71.6 Tobacco abuse counseling; Z79.899 Other long term (current) drug therapy; Y90.9 Presence of alcohol in blood, level not specified
CPT/HCPCS: 36415; 70450; 70496; 70498; 70551; 80053; 80061; 81003; 83036; 83735; 84443; 85025; 85610; 85730; 87635; 92508; 92616; 93005; 93306; 96361; 99285; J1815; J7030; Q9967; G0378

== ENCOUNTER 2021-07-07 21:20 | Emergency (ER) | payer MEDICARE, MEDICAID ==
[~2021-07-07] VITALS: Ht 160 cm; Wt 54.5 kg
[~2021-07-07 21:20] MED LIST changes: -ALLO100T25 PO; +AMLO10TA13 PO; -ASPI-611 PO; +ASPI81TA53 PO; -ATOR10TA PO; -CLIN-97 PO; +CLOP75TA34 PO; -DOCU-148 PO; -FERR324T4 PO; +FOLI0.4T14 PO; -HYDR-4383 PO; +MULT-25 PO; +NICO-631 TD; +THIA50TA10 PO
[2021-07-08 00:39] VITALS: BP 151/86
== END 2021-07-08 01:11 | disposition home or self-care (01) ==
LOC: ER 21:21
DX: T40.1X1A Poisoning by heroin, accidental (unintentional), initial encounter (principal); M10.9 Gout, unspecified; R55 Syncope and collapse; F17.200 Nicotine dependence, unspecified, uncomplicated; F12.90 Cannabis use, unspecified, uncomplicated; F11.90 Opioid use, unspecified, uncomplicated; Z86.73 Personal history of transient ischemic attack (TIA), and cerebral infarction without residual deficits; Z72.89 Other problems related to lifestyle; Z88.8 Allergy status to other drugs, medicaments and biological substances; Z88.6 Allergy status to analgesic agent; Z79.899 Other long term (current) drug therapy; Y92.89 Other specified places as the place of occurrence of the external cause
CPT/HCPCS: 70450; 71045; 99284

== ENCOUNTER 2021-10-16 13:25 | Emergency (ER) | payer MEDICARE, MEDICAID ==
[~2021-10-16] VITALS: Ht 160 cm; Wt 54.5 kg
--- NOTE | 2021-10-16 14:36 | NUR ---
GIRLFRIEND CALLED. WILL BE RIDE HOME IF PT IS DISCHARGED
[2021-10-16 16:37] LABS: BASOPHILS % (AUTO) 0.5 % (0-1); EOSINOPHILS # (AUTO) 0.6 X10'3 (0-0.9); EOSINOPHILS % (AUTO) 5.9 % (0-6); HEMATOCRIT 31.1 % (42.0-52.0); HEMOGLOBIN 10.3 g/dl (14.0-17.9); LYMPHOCYTES # (AUTO) 2.2 X10'3 (1.1-4.8); LYMPHOCYTES % (AUTO) 23.4 % (21-51); MEAN CORPUSCULAR HEMOGLOBIN 30.1 PG (27.0-31.0); MEAN CORPUSCULAR HGB CONC 33.2 g/dL (33.0-36.5); MEAN CORPUSCULAR VOLUME 90.8 FL (78-98); MEAN PLATELET VOLUME 7.2 FL (7.4-10.4); MONOCYTES # (AUTO) 0.9 X10'3 (0-0.9); MONOCYTES % (AUTO) 9.1 % (2-12); NEUTROPHILS # (AUTO) 5.8 X10'3 (1.8-7.7); NEUTROPHILS % (AUTO) 61.1 % (42-75); PLATELET COUNT 434 X10'3 (140-440); RED BLOOD COUNT 3.43 X10'6 (4.70-6.10); RED CELL DISTRIBUTION WIDTH 14.3 % (11.5-14.5); WHITE BLOOD COUNT 9.6 X10'3 (4.5-11.0)
[2021-10-16 16:50] LABS: ALANINE AMINOTRANSFERASE 17 U/L (12-78); ALBUMIN 2.9 G/DL (3.4-5.0); ALBUMIN/GLOBULIN RATIO 0.6 (1.1-1.5); ALKALINE PHOSPHATASE 98 IU/L (46-116); ANION GAP 9 (8-16); ASPARTATE AMINO TRANSFERASE 26 U/L (10-37); BILIRUBIN,TOTAL 0.3 MG/DL (0.1-1.0); BLOOD UREA NITROGEN 9 MG/DL (7-18); BUN/CREATININE RATIO 9.7 (5.4-32.0); CALCIUM 9.2 MG/DL (8.5-10.1); CHLORIDE 101 MMOL/L (99-107); CREATININE 0.93 MG/DL (0.60-1.10); GLUCOSE 106 MG/DL (70-104); POTASSIUM 3.7 MMOL/L (3.5-5.1); SODIUM 135 MMOL/L (135-145); TOTAL CARBON DIOXIDE 25.1 MMOL/L (24-32); TOTAL PROTEIN 7.6 G/DL (6.4-8.2); eGFR 81 ML/MIN
[2021-10-16] MEDS ORDERED: NALO4SPR BOTHNARES (17:20)
[2021-10-16 18:09] VITALS: BP 175/84
== END 2021-10-16 18:10 | disposition home or self-care (01) ==
LOC: ER 13:26
DX: T40.411A Poisoning by fentanyl or fentanyl analogs, accidental (unintentional), initial encounter (principal); M54.9 Dorsalgia, unspecified; M10.9 Gout, unspecified; F12.90 Cannabis use, unspecified, uncomplicated; F11.90 Opioid use, unspecified, uncomplicated; Z72.89 Other problems related to lifestyle; Z86.73 Personal history of transient ischemic attack (TIA), and cerebral infarction without residual deficits; Z79.899 Other long term (current) drug therapy; Y92.89 Other specified places as the place of occurrence of the external cause
CPT/HCPCS: 36415; 80053; 85025; 93005; 99285

== ENCOUNTER 2022-01-21 18:50 | Emergency (ER) | payer MEDICARE, MEDICAID ==
[~2022-01-21] VITALS: Ht 157.5 cm; Wt 54.5 kg
[~2022-01-21 18:50] MED LIST changes: +NALO4SPR BOTHNARES
[2022-01-21] MEDS ORDERED: normal saline 1000ml 1,000 ML IV ONE (21:05)
[2022-01-21 21:45] LABS: CLARITY,URINE CLEAR (Clear); COLOR,URINE YELLOW (Yellow); GLUCOSE, URINE NEGATIVE (Neg); KETONES,URINE NEGATIVE (Neg); LEUKOCYTE ESTERASE ,URINE NEGATIVE (Neg); NITRITES, URINE NEGATIVE (Neg); OCCULT BLOOD,URINE NEGATIVE (Neg); PROTEIN,URINE NEGATIVE (Neg); UROBILINOGEN,URINE 0.2 E.U/dL (0.2-1.0)
[2022-01-21 21:51] LABS: UA COLLECTION TYPE CLN CATCH MIDSTREAM
[2022-01-21 21:57] LABS: ALANINE AMINOTRANSFERASE 22 U/L (12-78); ALBUMIN 3.2 G/DL (3.4-5.0); ALBUMIN/GLOBULIN RATIO 0.6 (1.1-1.5); ALKALINE PHOSPHATASE 114 IU/L (46-116); ANION GAP 9 (8-16); ASPARTATE AMINO TRANSFERASE 21 U/L (10-37); BILIRUBIN,TOTAL 0.3 MG/DL (0.1-1.0); BLOOD UREA NITROGEN 9 MG/DL (7-18); BUN/CREATININE RATIO 7.3 (5.4-32.0); CALCIUM 8.8 MG/DL (8.5-10.1); CHLORIDE 103 MMOL/L (99-107); CREATININE 1.24 MG/DL (0.60-1.10); GLUCOSE 104 MG/DL (70-104); POTASSIUM 3.9 MMOL/L (3.5-5.1); SODIUM 135 MMOL/L (135-145); TOTAL CARBON DIOXIDE 22.8 MMOL/L (24-32); TOTAL PROTEIN 8.2 G/DL (6.4-8.2); eGFR 58 ML/MIN
[2022-01-21 22:31] LABS: BASOPHILS % (AUTO) 0.5 % (0-1); EOSINOPHILS # (AUTO) 0.2 X10'3 (0-0.9); EOSINOPHILS % (AUTO) 2.9 % (0-6); HEMATOCRIT 37.9 % (42.0-52.0); HEMOGLOBIN 12.5 g/dl (14.0-17.9); LYMPHOCYTES # (AUTO) 2.4 X10'3 (1.1-4.8); LYMPHOCYTES % (AUTO) 28.2 % (21-51); MEAN PLATELET VOLUME 7.3 FL (7.4-10.4); MONOCYTES # (AUTO) 0.4 X10'3 (0-0.9); MONOCYTES % (AUTO) 4.1 % (2-12); NEUTROPHILS # (AUTO) 5.4 X10'3 (1.8-7.7); NEUTROPHILS % (AUTO) 64.3 % (42-75); PLATELET COUNT 373 X10'3 (140-440); RED BLOOD COUNT 4.16 X10'6 (4.70-6.10); RED CELL DISTRIBUTION WIDTH 15.9 % (11.5-14.5); WHITE BLOOD COUNT 8.4 X10'3 (4.5-11.0)
[2022-01-21 22:38] VITALS: BP 161/82
== END 2022-01-21 22:40 | disposition home or self-care (01) ==
LOC: ER 18:51
DX: T67.9XXA Effect of heat and light, unspecified, initial encounter (principal); R53.1 Weakness; M10.9 Gout, unspecified; F12.90 Cannabis use, unspecified, uncomplicated; F11.90 Opioid use, unspecified, uncomplicated; Z86.73 Personal history of transient ischemic attack (TIA), and cerebral infarction without residual deficits; Z98.890 Other specified postprocedural states; Z72.89 Other problems related to lifestyle; Z79.899 Other long term (current) drug therapy; X58.XXXA Exposure to other specified factors, initial encounter; Y93.89 Activity, other specified; Y92.89 Other specified places as the place of occurrence of the external cause; Y99.8 Other external cause status
CPT/HCPCS: 36415; 80053; 81003; 85025; 96360; 99283; J7030

== ENCOUNTER 2022-03-06 12:54 | Emergency (ER) | payer MEDICARE, MEDICAID ==
[~2022-03-06] VITALS: Ht 157.5 cm; Wt 54.0 kg
[2022-03-06 12:56] VITALS: BP 167/77
[2022-03-06 13:19] LABS: BASOPHILS # (AUTO) 0.1 X10'3 (0-0.2); BASOPHILS % (AUTO) 0.7 % (0-1); EOSINOPHILS # (AUTO) 0.9 X10'3 (0-0.9); EOSINOPHILS % (AUTO) 8.9 % (0-6); HEMATOCRIT 38.3 % (42.0-52.0); HEMOGLOBIN 12.6 g/dl (14.0-17.9); LYMPHOCYTES # (AUTO) 2.5 X10'3 (1.1-4.8); LYMPHOCYTES % (AUTO) 25.8 % (21-51); MEAN CORPUSCULAR HEMOGLOBIN 29.8 PG (27.0-31.0); MEAN CORPUSCULAR VOLUME 90.3 FL (78-98); MEAN PLATELET VOLUME 7.2 FL (7.4-10.4); MONOCYTES # (AUTO) 0.6 X10'3 (0-0.9); MONOCYTES % (AUTO) 6.7 % (2-12); NEUTROPHILS # (AUTO) 5.5 X10'3 (1.8-7.7); NEUTROPHILS % (AUTO) 57.9 % (42-75); PLATELET COUNT 395 X10'3 (140-440); RED BLOOD COUNT 4.24 X10'6 (4.70-6.10); RED CELL DISTRIBUTION WIDTH 15.7 % (11.5-14.5); WHITE BLOOD COUNT 9.6 X10'3 (4.5-11.0)
[2022-03-06 13:45] LABS: ALANINE AMINOTRANSFERASE 8 U/L (12-78); ALBUMIN 3.1 G/DL (3.4-5.0); ALBUMIN/GLOBULIN RATIO 0.7 (1.1-1.5); ALKALINE PHOSPHATASE 106 IU/L (46-116); ANION GAP 6 (8-16); ASPARTATE AMINO TRANSFERASE 29 U/L (10-37); BILIRUBIN,TOTAL 0.3 MG/DL (0.1-1.0); BLOOD UREA NITROGEN 9 MG/DL (7-18); BUN/CREATININE RATIO 8.7 (5.4-32.0); CALCIUM 8.8 MG/DL (8.5-10.1); CHLORIDE 102 MMOL/L (99-107); CREATININE 1.03 MG/DL (0.60-1.10); GLUCOSE 126 MG/DL (70-104); POTASSIUM 4.3 MMOL/L (3.5-5.1); SODIUM 137 MMOL/L (135-145); TOTAL PROTEIN 7.8 G/DL (6.4-8.2); eGFR 72 ML/MIN
== END 2022-03-06 19:49 | disposition left against medical advice (07) ==
LOC: ER 12:54
DX: R10.9 Unspecified abdominal pain (principal); Z53.21 Procedure and treatment not carried out due to patient leaving prior to being seen by health care provider
CPT/HCPCS: 36415; 80053; 85025

== ENCOUNTER 2022-10-13 13:01 | Emergency (ER) | payer MEDICARE, MEDICAID ==
[~2022-10-13] VITALS: Ht 162.6 cm; Wt 54.5 kg
[2022-10-13 13:02] VITALS: BP 163/75
[2022-10-13] MEDS ORDERED: ondansetron/PF 4mg/2ml inj IV ONE (13:35)
[2022-10-13] MEDS ORDERED: LORazepam 2 mg/ml vial IV ONE (13:35)
[2022-10-13] MEDS ORDERED: normal saline 1000ml 1,000 ML IV ONE (13:35)
[2022-10-13] MEDS ORDERED: cyclobenzaprine 10mg tablet PO ONE (13:50)
[2022-10-13] MEDS ORDERED: ketorolac trometh. 30mg/ml inj. IM ONE (13:50)
[2022-10-13] MEDS ORDERED: CYCL-1 PO (13:51)
[2022-10-13] MEDS ORDERED: IBUP-1986 PO (13:51)
[2022-10-13] MEDS ORDERED: LIDO700A32 TOP (13:51)
== END 2022-10-13 14:18 | disposition home or self-care (01) ==
LOC: ER 13:01
DX: S39.012A Strain of muscle, fascia and tendon of lower back, initial encounter (principal); F12.10 Cannabis abuse, uncomplicated; Z79.899 Other long term (current) drug therapy; Z79.1 Long term (current) use of non-steroidal anti-inflammatories (NSAID); Z79.2 Long term (current) use of antibiotics
CPT/HCPCS: 96372; 99283; J1885

== ENCOUNTER 2022-10-15 19:12 | Emergency (ER) | payer MEDICARE, MEDICAID ==
[~2022-10-15] VITALS: Ht 157.5 cm; Wt 54.5 kg
[~2022-10-15 19:12] MED LIST changes: +CYCL-1 PO; +IBUP-1986 PO; +LIDO700A32 TOP
== END 2022-10-15 20:11 | disposition left against medical advice (07) ==
LOC: ER 19:13
DX: M54.9 Dorsalgia, unspecified (principal); Z53.21 Procedure and treatment not carried out due to patient leaving prior to being seen by health care provider
CPT/HCPCS: 99281

== ENCOUNTER 2024-07-06 15:35 | Inpatient (IN) | payer MEDICARE, MEDICAID ==
[~2024-07-06] VITALS: Ht 157.5 cm; Wt 54.4 kg
[~2024-07-06 15:35] MED LIST changes: +ALLO100T PO; -AMLO10TA13 PO; -ASPI81TA53 PO; +ATOR20TA66 PO; +CHOL50002 PO; +CLOP75TA33 PO; -CLOP75TA34 PO; -CYCL-1 PO; -FOLI0.4T14 PO; +FOLI1TAB27 PO; +GABA300C PO; -IBUP-1986 PO; -LIDO700A32 TOP; -NALO4SPR BOTHNARES; -NICO-631 TD
[2024-07-06] MEDS ORDERED: IBUP-1984 PO (15:57)
[2024-07-06 16:05] LABS: BASOPHILS % (AUTO) 0.3 % (0-1); EOSINOPHILS % (AUTO) 0 % (0-6); HEMATOCRIT 37.3 % (42.0-52.0); HEMOGLOBIN 12.4 g/dl (14.0-17.9); LYMPHOCYTES # (AUTO) 1.1 X10'3 (1.1-4.8); LYMPHOCYTES % (AUTO) 7.3 % (21-51); MEAN CORPUSCULAR HEMOGLOBIN 33.6 PG (27.0-31.0); MEAN CORPUSCULAR HGB CONC 33.3 g/dL (33.0-36.5); MEAN CORPUSCULAR VOLUME 100.8 FL (78-98); MEAN PLATELET VOLUME 7.9 FL (7.4-10.4); MONOCYTES # (AUTO) 2.2 X10'3 (0-0.9); MONOCYTES % (AUTO) 13.7 % (2-12); NEUTROPHILS # (AUTO) 12.4 X10'3 (1.8-7.7); NEUTROPHILS % (AUTO) 78.7 % (42-75); PLATELET COUNT 281 X10'3 (140-440); RED CELL DISTRIBUTION WIDTH 16.9 % (11.5-14.5); WHITE BLOOD COUNT 15.8 X10'3 (4.5-11.0)
[2024-07-06 16:20] LABS: ALBUMIN 2.5 G/DL (3.4-5.0); ANION GAP 10 (8-16); BLOOD UREA NITROGEN 17 MG/DL (7-18); BUN/CREATININE RATIO 13.2 (10.0-20.0); CALCIUM 8.9 MG/DL (8.5-10.1); CHLORIDE 94 MMOL/L (99-107); CREATININE 1.29 MG/DL (0.60-1.10); GLUCOSE 123 MG/DL (70-104); PRO BRAIN NATRIURETIC PEPTIDE 4686 PG/ML (0-125); SODIUM 130 MMOL/L (135-145); TOTAL CARBON DIOXIDE 25.6 MMOL/L (24-32); eCRCL 41 ML/MIN; eGFR 55 ML/MIN
[2024-07-06 16:45] LABS: BILIRUBIN,URINE NEGATIVE (Neg); CLARITY,URINE CLEAR (Clear); GLUCOSE, URINE NEGATIVE (Neg); KETONES,URINE NEGATIVE (Neg); LEUKOCYTE ESTERASE ,URINE NEGATIVE (Neg); NITRITES, URINE NEGATIVE (Neg); OCCULT BLOOD,URINE TRACE-INTACT (Neg); PROTEIN,URINE 100 mg/dl (Neg)
[2024-07-06 16:54] LABS: COLOR,URINE DARK YELLOW (Yellow); UA COLLECTION TYPE URINAL
[2024-07-06 16:57] LABS: BACTERIA,URINE NONE SEEN /HPF (Neg); MUCUS STRANDS FEW /LPF (Neg); SQUAMOUS EPITHELIAL CELL,UR FEW /LPF (FEW); WBC,URINE 0-4 /HPF (0-4)
[2024-07-06 16:58] LABS: HYALINE CASTS 0-3 /LPF (NEGATIVE)
[2024-07-06] MEDS: normal saline 1000ML IV soln IVB ONE (17:49)
[2024-07-06] MEDS: PERFLUTREN PROTEIN-A MICROSPHR (Optison) 0.22 MG/ML 3ML VIAL IV ONE (19:44)
[2024-07-06] MEDS ORDERED: magnesium hydroxide 30ml (MOM) UD suspension PO PRN (21:25)
[2024-07-06] MEDS ORDERED: mag hydrox/Alum hydrox/simeth 30ml oral suspension PO PRN (21:25)
[2024-07-06] MEDS ORDERED: haloperidol lactate 5mg/ml inj IM PRN (21:25)
[2024-07-06] MEDS ORDERED: magnesium sulf-water 2g/50mL 50 ML IV PRN (21:25)
[2024-07-06] MEDS ORDERED: potassium Cl 40MEQ/1/2NS 520ml 520 ML IV PRN (21:25)
[2024-07-06] MEDS ORDERED: LORazepam 2 mg/ml vial IV PRN (21:25)
[2024-07-06] MEDS ORDERED: ondansetron/PF 4mg/2ml inj IV PRN (21:25)
[2024-07-06] MEDS ORDERED: magnesium sulf-water 4G/100mL 100 ML IV PRN (21:25)
[2024-07-06] MEDS ORDERED: potassium Cl 20 mEq SR tablet PO PRN (21:25)
[2024-07-06] MEDS ORDERED: haloperidol 5mg tablet PO PRN (21:25)
[2024-07-06] MEDS: thiamine 100mg tablet PO SCH (21:46)
[2024-07-06] MEDS: folic acid 1mg tablet PO SCH (21:46)
[2024-07-06] MEDS: hydrALAZINE 20mg/ml inj. IV ONE (21:46)
[2024-07-06] MEDS: normal saline 500ml IV soln 500 ML IV ONE (22:00)
[2024-07-06 22:45] VITALS: BP 140/71; PULSE 91; RESP 19; TEMP 98; O2SAT 97; O2SAT 98
[2024-07-06 23:12] LABS: URINE AMPHETAMINE SCREEN POSITIVE (Neg); URINE BARBITUATE SCREEN NEGATIVE (Neg); URINE BENZODIAZEPINES SCREEN NEGATIVE (Neg); URINE CANNABINOID SCREEN POSITIVE (Neg); URINE COCAINE SCREEN NEGATIVE (Neg); URINE METHADONE SCREEN POSITIVE (Neg); URINE OPIATE SCREEN POSITIVE (Neg); URINE PHENCYCLIDINE SCREEN NEGATIVE (Neg)
[2024-07-07] VITALS (7 sets, daily range): BP systolic 123–130; BP diastolic 57–93; PULSE 78–96; RESP 12–21; TEMP 97.4–98.1; O2SAT 95–97
[2024-07-07] MEDS: gabapentin 400mg capsule PO SCH (00:07)
[2024-07-07] MEDS: LORazepam 1 MG tablet PO PRN (00:07)
[2024-07-07] MEDS: acetaminophen 1,000mg/100ml IV 100 ML IV ONE (00:49)
[2024-07-07 06:57] LABS: INR 1.1 INR; PROTHROMBIN TIME 11.9 SECONDS (9.0-12.0)
[2024-07-07 07:01] LABS: ALANINE AMINOTRANSFERASE 17 U/L (12-78); ALBUMIN/GLOBULIN RATIO 0.5 (1.1-1.5); ALKALINE PHOSPHATASE 107 IU/L (46-116); AMYLASE 20 U/L (25-115); ANION GAP 8 (8-16); ASPARTATE AMINO TRANSFERASE 20 U/L (10-37); BILIRUBIN,TOTAL 0.6 MG/DL (0.1-1.0); BLOOD UREA NITROGEN 17 MG/DL (7-18); BUN/CREATININE RATIO 15.2 (10.0-20.0); CALCIUM 8.5 MG/DL (8.5-10.1); CHLORIDE 100 MMOL/L (99-107); CREATININE 1.12 MG/DL (0.60-1.10); GLUCOSE 78 MG/DL (70-104); LIPASE 19 U/L (16-77); MAGNESIUM 1.2 MG/DL (1.5-2.4); PHOSPHORUS 3.6 MG/DL (2.3-4.5); POTASSIUM 3.4 MMOL/L (3.5-5.1); SODIUM 134 MMOL/L (135-145); TOTAL CARBON DIOXIDE 26.2 MMOL/L (24-32); TOTAL PROTEIN 6.2 G/DL (6.4-8.2); eCRCL 47 ML/MIN; eGFR 65 ML/MIN
[2024-07-07 07:23] LABS: BASOPHILS % (AUTO) 0.1 % (0-1); EOSINOPHILS # (AUTO) 0.1 X10'3 (0-0.9); EOSINOPHILS % (AUTO) 0.3 % (0-6); HEMATOCRIT 33.2 % (42.0-52.0); LYMPHOCYTES # (AUTO) 1.6 X10'3 (1.1-4.8); LYMPHOCYTES % (AUTO) 9.3 % (21-51); MEAN CORPUSCULAR HEMOGLOBIN 33.7 PG (27.0-31.0); MEAN CORPUSCULAR HGB CONC 33.3 g/dL (33.0-36.5); MEAN CORPUSCULAR VOLUME 101.2 FL (78-98); MONOCYTES # (AUTO) 1.4 X10'3 (0-0.9); MONOCYTES % (AUTO) 8.1 % (2-12); NEUTROPHILS # (AUTO) 14.6 X10'3 (1.8-7.7); NEUTROPHILS % (AUTO) 82.2 % (42-75); PLATELET COUNT 252 X10'3 (140-440); RED BLOOD COUNT 3.28 X10'6 (4.70-6.10); RED CELL DISTRIBUTION WIDTH 16.8 % (11.5-14.5); WHITE BLOOD COUNT 17.8 X10'3 (4.5-11.0)
[2024-07-07] MEDS: K and/or MAG REPLACEMENT MC SCH (08:00)
[2024-07-07] MEDS ORDERED: docusate sod 100mg capsule PO SCH (08:00)
[2024-07-07] MEDS: clopidogrel 75mg tablet PO SCH (08:56)
[2024-07-07] MEDS: docusate sodium 100mg/10ml UD cup PO SCH (08:56)
[2024-07-07] MEDS: atorvastatin 20mg tablet PO SCH (08:56)
[2024-07-07] MEDS: cyanocobalamin 500mcg tablet PO SCH (08:56)
[2024-07-07] MEDS: allopurinol 100mg tablet PO SCH (08:56)
[2024-07-07] MEDS: losartan 50mg tablet PO SCH (08:56)
[2024-07-07] MEDS: heparin, porcine 5000 units/ml vial SQ SCH (08:56)
[2024-07-07] MEDS: potassium Cl 20 mEq SR tablet PO PRN (09:11)
[2024-07-07] MEDS: normal saline 1000ml 1,000 ML IV SCH (11:50)
[2024-07-07 14:53] LABS: CHOL/HDL RATIO 1.6 (0.00-4.99); CHOLESTEROL 107 MG/DL (0-200); HDL CHOLESTEROL 65 MG/DL (35-60); LDL CHOLESTEROL 31 MG/DL (50-100); TRIGLYCERIDES 56 MG/DL (20-135)
[2024-07-07] MEDS: CefTRIAXone/D5W-Rocephin 1gm 50 ML IV SCH (15:00)
[2024-07-07] MEDS: gabapentin 300mg capsule PO SCH (15:28)
[2024-07-07] MEDS: magnesium Cl slow-release 64mg tablet PO PRN (19:56)
[2024-07-07] MEDS: acetaminophen 325mg tablet PO PRN (23:37)
[2024-07-08] VITALS (8 sets, daily range): BP systolic 123–173; BP diastolic 68–89; PULSE 92–101; RESP 12–21; TEMP 97–98; O2SAT 95–99
[2024-07-08 06:57] LABS: BASOPHILS % (AUTO) 0.1 % (0-1); EOSINOPHILS % (AUTO) 0.1 % (0-6); HEMATOCRIT 34.1 % (42.0-52.0); HEMOGLOBIN 11.6 g/dl (14.0-17.9); LYMPHOCYTES # (AUTO) 1.6 X10'3 (1.1-4.8); MEAN CORPUSCULAR HEMOGLOBIN 34.2 PG (27.0-31.0); MEAN CORPUSCULAR HGB CONC 34.1 g/dL (33.0-36.5); MEAN CORPUSCULAR VOLUME 100.1 FL (78-98); MEAN PLATELET VOLUME 7.9 FL (7.4-10.4); MONOCYTES # (AUTO) 1.7 X10'3 (0-0.9); MONOCYTES % (AUTO) 9.2 % (2-12); NEUTROPHILS # (AUTO) 14.7 X10'3 (1.8-7.7); NEUTROPHILS % (AUTO) 81.6 % (42-75); PLATELET COUNT 307 X10'3 (140-440); RED CELL DISTRIBUTION WIDTH 16.8 % (11.5-14.5)
[2024-07-08 07:10] LABS: INR 1.1 INR; PROTHROMBIN TIME 11.2 SECONDS (9.0-12.0)
[2024-07-08 07:44] LABS: ALANINE AMINOTRANSFERASE 19 U/L (12-78); ALBUMIN 2.1 G/DL (3.4-5.0); ALBUMIN/GLOBULIN RATIO 0.4 (1.1-1.5); ALKALINE PHOSPHATASE 129 IU/L (46-116); ANION GAP 14 (8-16); ASPARTATE AMINO TRANSFERASE 26 U/L (10-37); BILIRUBIN,TOTAL 0.5 MG/DL (0.1-1.0); BLOOD UREA NITROGEN 15 MG/DL (7-18); BUN/CREATININE RATIO 13.8 (10.0-20.0); CALCIUM 8.8 MG/DL (8.5-10.1); CHLORIDE 99 MMOL/L (99-107); CREATININE 1.09 MG/DL (0.60-1.10); GLUCOSE 79 MG/DL (70-104); MAGNESIUM 1.2 MG/DL (1.5-2.4); POTASSIUM 4.1 MMOL/L (3.5-5.1); PRO BRAIN NATRIURETIC PEPTIDE 1307 PG/ML (0-125); SODIUM 134 MMOL/L (135-145); TOTAL CARBON DIOXIDE 20.6 MMOL/L (24-32); TOTAL PROTEIN 6.8 G/DL (6.4-8.2); eCRCL 49 ML/MIN; eGFR 67 ML/MIN
[2024-07-08] MEDS: allopurinol 100mg tablet PO SCH (08:39)
[2024-07-08] MEDS: acetaminophen 325mg tablet PO PRN (16:35)
[2024-07-09] VITALS (8 sets, daily range): BP systolic 124–165; BP diastolic 65–78; PULSE 71–105; RESP 12–20; TEMP 96.7–100.4; O2SAT 94–98
[2024-07-09 07:24] LABS: INR 1.1 INR; PROTHROMBIN TIME 11.2 SECONDS (9.0-12.0)
[2024-07-09 07:28] LABS: BASOPHILS % (AUTO) 0.1 % (0-1); EOSINOPHILS % (AUTO) 0 % (0-6); HEMATOCRIT 34.9 % (42.0-52.0); HEMOGLOBIN 11.8 g/dl (14.0-17.9); LYMPHOCYTES # (AUTO) 1.8 X10'3 (1.1-4.8); LYMPHOCYTES % (AUTO) 9.2 % (21-51); MEAN CORPUSCULAR HEMOGLOBIN 33.7 PG (27.0-31.0); MEAN CORPUSCULAR HGB CONC 33.9 g/dL (33.0-36.5); MEAN CORPUSCULAR VOLUME 99.4 FL (78-98); MEAN PLATELET VOLUME 8.2 FL (7.4-10.4); MONOCYTES # (AUTO) 2.1 X10'3 (0-0.9); MONOCYTES % (AUTO) 10.5 % (2-12); NEUTROPHILS # (AUTO) 16.1 X10'3 (1.8-7.7); NEUTROPHILS % (AUTO) 80.2 % (42-75); PLATELET COUNT 367 X10'3 (140-440); RED BLOOD COUNT 3.51 X10'6 (4.70-6.10); RED CELL DISTRIBUTION WIDTH 16.8 % (11.5-14.5); WHITE BLOOD COUNT 20.1 X10'3 (4.5-11.0)
[2024-07-09 08:58] LABS: ALANINE AMINOTRANSFERASE 27 U/L (12-78); ALBUMIN/GLOBULIN RATIO 0.4 (1.1-1.5); ALKALINE PHOSPHATASE 179 IU/L (46-116); ANION GAP 10 (8-16); ASPARTATE AMINO TRANSFERASE 52 U/L (10-37); BILIRUBIN,TOTAL 0.6 MG/DL (0.1-1.0); BLOOD UREA NITROGEN 13 MG/DL (7-18); CALCIUM 8.8 MG/DL (8.5-10.1); CHLORIDE 98 MMOL/L (99-107); CREATININE 1.18 MG/DL (0.60-1.10); GLUCOSE 157 MG/DL (70-104); MAGNESIUM 1.4 MG/DL (1.5-2.4); PHOSPHORUS 3.6 MG/DL (2.3-4.5); POTASSIUM 3.9 MMOL/L (3.5-5.1); SODIUM 132 MMOL/L (135-145); TOTAL CARBON DIOXIDE 24.4 MMOL/L (24-32); TOTAL PROTEIN 7.2 G/DL (6.4-8.2); eCRCL 45 ML/MIN; eGFR 61 ML/MIN
[2024-07-09] MEDS: piperacillin/tazo 3.375gm/50ml 50 ML IV SCH (13:20)
[2024-07-09 13:37] LABS: URIC ACID 5.3 MG/DL (3.5-7.2)
[2024-07-09 13:38] LABS: C-REACTIVE PROTEIN 31.51 MG/DL (0.0-0.5)
[2024-07-09] MEDS: magnesium Cl slow-release 64mg tablet PO PRN (23:26)
[2024-07-10] VITALS (7 sets, daily range): BP systolic 93–164; BP diastolic 50–90; PULSE 82–92; RESP 12–23; TEMP 97.2–98.8; O2SAT 96–98
[2024-07-10 08:48] LABS: BASOPHILS % (AUTO) 0.2 % (0-1); EOSINOPHILS # (AUTO) 0.1 X10'3 (0-0.9); EOSINOPHILS % (AUTO) 0.3 % (0-6); HEMATOCRIT 33.3 % (42.0-52.0); HEMOGLOBIN 11.2 g/dl (14.0-17.9); LYMPHOCYTES # (AUTO) 1.7 X10'3 (1.1-4.8); LYMPHOCYTES % (AUTO) 9.2 % (21-51); MEAN CORPUSCULAR HEMOGLOBIN 33.5 PG (27.0-31.0); MEAN CORPUSCULAR HGB CONC 33.7 g/dL (33.0-36.5); MEAN CORPUSCULAR VOLUME 99.3 FL (78-98); MEAN PLATELET VOLUME 8.2 FL (7.4-10.4); MONOCYTES # (AUTO) 1.9 X10'3 (0-0.9); MONOCYTES % (AUTO) 10.3 % (2-12); NEUTROPHILS # (AUTO) 14.9 X10'3 (1.8-7.7); PLATELET COUNT 407 X10'3 (140-440); RED BLOOD COUNT 3.36 X10'6 (4.70-6.10); RED CELL DISTRIBUTION WIDTH 16.9 % (11.5-14.5); WHITE BLOOD COUNT 18.6 X10'3 (4.5-11.0)
[2024-07-10 08:53] LABS: PROTHROMBIN TIME 10.9 SECONDS (9.0-12.0)
[2024-07-10 09:42] LABS: ALANINE AMINOTRANSFERASE 32 U/L (12-78); ALBUMIN 1.7 G/DL (3.4-5.0); ALBUMIN/GLOBULIN RATIO 0.4 (1.1-1.5); ALKALINE PHOSPHATASE 195 IU/L (46-116); ANION GAP 8 (8-16); ASPARTATE AMINO TRANSFERASE 54 U/L (10-37); BILIRUBIN,TOTAL 0.4 MG/DL (0.1-1.0); BLOOD UREA NITROGEN 13 MG/DL (7-18); BUN/CREATININE RATIO 10.3 (10.0-20.0); CALCIUM 8.3 MG/DL (8.5-10.1); CHLORIDE 100 MMOL/L (99-107); CREATININE 1.26 MG/DL (0.60-1.10); GLUCOSE 160 MG/DL (70-104); MAGNESIUM 1.6 MG/DL (1.5-2.4); PHOSPHORUS 3.4 MG/DL (2.3-4.5); POTASSIUM 3.5 MMOL/L (3.5-5.1); SODIUM 133 MMOL/L (135-145); TOTAL CARBON DIOXIDE 24.8 MMOL/L (24-32); TOTAL PROTEIN 6.3 G/DL (6.4-8.2); eCRCL 42 ML/MIN; eGFR 57 ML/MIN
[2024-07-10] MEDS: normal saline 1000ml 1,000 ML IV SCH (11:09)
[2024-07-10] MEDS: ketorolac trometh 15mg/ml vial 15 MG/ML ML IM PRN (11:10)
[2024-07-10] MEDS: amLODIPine 5mg tablet PO SCH (11:15)
[2024-07-10] MEDS: celeCOXIB 100mg capsule PO SCH (20:07)
[2024-07-10] MEDS: colchicine 0.6mg tablet PO SCH (20:08)
[2024-07-11] VITALS (18 sets, daily range): BP systolic 100–169; BP diastolic 51–76; PULSE 76–94; RESP 12–19; TEMP 97.2–99.2; O2SAT 95–100
[2024-07-11] MEDS: Melatonin 3mg tablet PO ONE (00:17)
[2024-07-11 07:38] LABS: BASOPHILS # (AUTO) 0.1 X10'3 (0-0.2); BASOPHILS % (AUTO) 0.3 % (0-1); EOSINOPHILS # (AUTO) 0.1 X10'3 (0-0.9); EOSINOPHILS % (AUTO) 0.5 % (0-6); HEMATOCRIT 23.1 % (42.0-52.0); LYMPHOCYTES # (AUTO) 1.6 X10'3 (1.1-4.8); LYMPHOCYTES % (AUTO) 9.8 % (21-51); MEAN CORPUSCULAR HEMOGLOBIN 33.2 PG (27.0-31.0); MEAN CORPUSCULAR HGB CONC 33.2 g/dL (33.0-36.5); MEAN CORPUSCULAR VOLUME 99.9 FL (78-98); MEAN PLATELET VOLUME 8.4 FL (7.4-10.4); MONOCYTES # (AUTO) 1.8 X10'3 (0-0.9); NEUTROPHILS % (AUTO) 78.4 % (42-75); PLATELET COUNT 381 X10'3 (140-440); RED BLOOD COUNT 2.32 X10'6 (4.70-6.10); RED CELL DISTRIBUTION WIDTH 17.1 % (11.5-14.5); WHITE BLOOD COUNT 16.6 X10'3 (4.5-11.0)
[2024-07-11 07:52] LABS: INR 1.1 INR; PROTHROMBIN TIME 11.2 SECONDS (9.0-12.0)
[2024-07-11 08:46] LABS: ALANINE AMINOTRANSFERASE 36 U/L (12-78); ALBUMIN 1.5 G/DL (3.4-5.0); ALBUMIN/GLOBULIN RATIO 0.4 (1.1-1.5); ALKALINE PHOSPHATASE 195 IU/L (46-116); ANION GAP 5 (8-16); ASPARTATE AMINO TRANSFERASE 57 U/L (10-37); BILIRUBIN,TOTAL 0.3 MG/DL (0.1-1.0); BLOOD UREA NITROGEN 36 MG/DL (7-18); BUN/CREATININE RATIO 28.8 (10.0-20.0); CALCIUM 7.7 MG/DL (8.5-10.1); CHLORIDE 100 MMOL/L (99-107); CREATININE 1.25 MG/DL (0.60-1.10); GLUCOSE 102 MG/DL (70-104); PHOSPHORUS 3.2 MG/DL (2.3-4.5); POTASSIUM 4.5 MMOL/L (3.5-5.1); SODIUM 132 MMOL/L (135-145); TOTAL CARBON DIOXIDE 26.8 MMOL/L (24-32); TOTAL PROTEIN 5.6 G/DL (6.4-8.2); eCRCL 42 ML/MIN; eGFR 57 ML/MIN
[2024-07-11 09:20] LABS: HEMOGLOBIN 7.7 g/dl (14.0-17.9)
[2024-07-11 09:42] LABS: OCCULT BLOOD STOOL POSITIVE (Neg)
[2024-07-11 10:47] LABS: BASOPHILS # (AUTO) 0.1 X10'3 (0-0.2); BASOPHILS % (AUTO) 0.4 % (0-1); EOSINOPHILS # (AUTO) 0.1 X10'3 (0-0.9); EOSINOPHILS % (AUTO) 0.6 % (0-6); HEMOGLOBIN 7.1 g/dl (14.0-17.9); LYMPHOCYTES # (AUTO) 1.8 X10'3 (1.1-4.8); LYMPHOCYTES % (AUTO) 10.1 % (21-51); MEAN CORPUSCULAR HEMOGLOBIN 33.2 PG (27.0-31.0); MEAN CORPUSCULAR HGB CONC 33.6 g/dL (33.0-36.5); MEAN CORPUSCULAR VOLUME 98.9 FL (78-98); MEAN PLATELET VOLUME 8.5 FL (7.4-10.4); MONOCYTES # (AUTO) 1.9 X10'3 (0-0.9); MONOCYTES % (AUTO) 10.9 % (2-12); NEUTROPHILS # (AUTO) 13.9 X10'3 (1.8-7.7); PLATELET COUNT 440 X10'3 (140-440); RED BLOOD COUNT 2.15 X10'6 (4.70-6.10); RED CELL DISTRIBUTION WIDTH 16.9 % (11.5-14.5); WHITE BLOOD COUNT 17.8 X10'3 (4.5-11.0)
[2024-07-11 10:57] LABS: HEMATOCRIT 21.3 % (42.0-52.0)
[2024-07-11 11:27] LABS: % IRON SATURATION 12 % (11-46); IRON 17 UG/DL (53-167); TOTAL IRON BINDING CAPACITY 142 UG/DL (259-388)
[2024-07-11 11:49] LABS: FERRITIN 187 NG/ML (26-388)
[2024-07-11] MEDS: pantoprazole 40 MG vial IV SCH (22:24)
[2024-07-12] VITALS (22 sets, daily range): BP systolic 112–165; BP diastolic 45–79; PULSE 69–92; RESP 16–21; TEMP 97.4–98.6; O2SAT 96–100
[2024-07-12 00:25] LABS: HEMATOCRIT 35.1 % (42.0-52.0); MEAN CORPUSCULAR HGB CONC 34.1 g/dL (33.0-36.5); MEAN PLATELET VOLUME 8.1 FL (7.4-10.4); PLATELET COUNT 418 X10'3 (140-440); RED BLOOD COUNT 3.74 X10'6 (4.70-6.10); RED CELL DISTRIBUTION WIDTH 17.2 % (11.5-14.5); WHITE BLOOD COUNT 13.5 X10'3 (4.5-11.0)
[2024-07-12 07:00] LABS: HEMATOCRIT 34.6 % (42.0-52.0); HEMOGLOBIN 11.7 g/dl (14.0-17.9); MEAN CORPUSCULAR HEMOGLOBIN 31.7 PG (27.0-31.0); MEAN CORPUSCULAR HGB CONC 33.8 g/dL (33.0-36.5); MEAN CORPUSCULAR VOLUME 93.8 FL (78-98); MEAN PLATELET VOLUME 8.3 FL (7.4-10.4); PLATELET COUNT 517 X10'3 (140-440); RED BLOOD COUNT 3.69 X10'6 (4.70-6.10); RED CELL DISTRIBUTION WIDTH 17.6 % (11.5-14.5); WHITE BLOOD COUNT 18.8 X10'3 (4.5-11.0)
[2024-07-12] MEDS ORDERED: LIDOcaine 2% Viscous 15ml cup ONE (13:23)
[2024-07-12] MEDS ORDERED: fentaNYL/PF 50MCG/1 ML 2ML syringe ONE (13:33)
[2024-07-12] MEDS ORDERED: MIDAZolam 1 MG/ML 5ML VIAL ONE (13:34)
[2024-07-13] VITALS (8 sets, daily range): BP systolic 120–182; BP diastolic 54–93; PULSE 71–80; RESP 16–21; TEMP 97.6–98.9; O2SAT 94–98
[2024-07-13 06:40] LABS: EOSINOPHILS # (AUTO) 0.1 X10'3 (0-0.9)
[2024-07-13 06:43] LABS: BASOPHILS # (AUTO) 0.1 X10'3 (0-0.2); BASOPHILS % (AUTO) 0.5 % (0-1); EOSINOPHILS % (AUTO) 0.6 % (0-6); HEMATOCRIT 32.9 % (42.0-52.0); HEMOGLOBIN 11.4 g/dl (14.0-17.9); LYMPHOCYTES # (AUTO) 1.6 X10'3 (1.1-4.8); MEAN CORPUSCULAR HEMOGLOBIN 32.6 PG (27.0-31.0); MEAN CORPUSCULAR HGB CONC 34.6 g/dL (33.0-36.5); MEAN CORPUSCULAR VOLUME 94.4 FL (78-98); MEAN PLATELET VOLUME 7.8 FL (7.4-10.4); MONOCYTES # (AUTO) 1.2 X10'3 (0-0.9); MONOCYTES % (AUTO) 7.7 % (2-12); NEUTROPHILS % (AUTO) 81.2 % (42-75); PLATELET COUNT 609 X10'3 (140-440); RED BLOOD COUNT 3.48 X10'6 (4.70-6.10); RED CELL DISTRIBUTION WIDTH 17.5 % (11.5-14.5)
[2024-07-13 07:24] LABS: ALANINE AMINOTRANSFERASE 34 U/L (12-78); ALBUMIN 1.6 G/DL (3.4-5.0); ALBUMIN/GLOBULIN RATIO 0.3 (1.1-1.5); ALKALINE PHOSPHATASE 257 IU/L (46-116); ANION GAP 10 (8-16); ASPARTATE AMINO TRANSFERASE 36 U/L (10-37); BILIRUBIN,TOTAL 0.4 MG/DL (0.1-1.0); BLOOD UREA NITROGEN 15 MG/DL (7-18); BUN/CREATININE RATIO 14.4 (10.0-20.0); CALCIUM 8.5 MG/DL (8.5-10.1); CHLORIDE 101 MMOL/L (99-107); CREATININE 1.04 MG/DL (0.60-1.10); GLUCOSE 99 MG/DL (70-104); POTASSIUM 3.6 MMOL/L (3.5-5.1); SODIUM 134 MMOL/L (135-145); TOTAL CARBON DIOXIDE 23.1 MMOL/L (24-32); TOTAL PROTEIN 6.3 G/DL (6.4-8.2); eCRCL 51 ML/MIN; eGFR 71 ML/MIN
[2024-07-13] MEDS: piperacillin/tazo 3.375gm/50ml 50 ML IV SCH (14:15)
[2024-07-13] MEDS: colchicine 0.6mg tablet PO SCH (19:45)
[2024-07-14] VITALS (8 sets, daily range): BP systolic 136–159; BP diastolic 20–95; PULSE 76–82; RESP 12–24; TEMP 97.7–98.6; O2SAT 94–99
[2024-07-14 07:14] LABS: BASOPHILS # (AUTO) 0.1 X10'3 (0-0.2); EOSINOPHILS # (AUTO) 0.2 X10'3 (0-0.9); HEMOGLOBIN 10.9 g/dl (14.0-17.9); LYMPHOCYTES # (AUTO) 1.8 X10'3 (1.1-4.8); MONOCYTES # (AUTO) 1.5 X10'3 (0-0.9)
[2024-07-14 07:18] LABS: BASOPHILS % (AUTO) 0.3 % (0-1); EOSINOPHILS % (AUTO) 1.2 % (0-6); HEMATOCRIT 32.3 % (42.0-52.0); MEAN CORPUSCULAR HEMOGLOBIN 31.9 PG (27.0-31.0); MEAN CORPUSCULAR HGB CONC 33.6 g/dL (33.0-36.5); MEAN CORPUSCULAR VOLUME 94.8 FL (78-98); MEAN PLATELET VOLUME 7.7 FL (7.4-10.4); MONOCYTES % (AUTO) 8.7 % (2-12); NEUTROPHILS # (AUTO) 13.2 X10'3 (1.8-7.7); NEUTROPHILS % (AUTO) 78.8 % (42-75); PLATELET COUNT 729 X10'3 (140-440); RED CELL DISTRIBUTION WIDTH 17.3 % (11.5-14.5); WHITE BLOOD COUNT 16.7 X10'3 (4.5-11.0)
[2024-07-14 08:12] LABS: ALANINE AMINOTRANSFERASE 41 U/L (12-78); ALBUMIN 1.6 G/DL (3.4-5.0); ALBUMIN/GLOBULIN RATIO 0.3 (1.1-1.5); ALKALINE PHOSPHATASE 252 IU/L (46-116); ANION GAP 8 (8-16); ASPARTATE AMINO TRANSFERASE 47 U/L (10-37); BILIRUBIN,TOTAL 0.4 MG/DL (0.1-1.0); BLOOD UREA NITROGEN 12 MG/DL (7-18); BUN/CREATININE RATIO 10.9 (10.0-20.0); CALCIUM 8.5 MG/DL (8.5-10.1); CHLORIDE 103 MMOL/L (99-107); GLUCOSE 90 MG/DL (70-104); POTASSIUM 3.5 MMOL/L (3.5-5.1); SODIUM 135 MMOL/L (135-145); TOTAL CARBON DIOXIDE 23.9 MMOL/L (24-32); TOTAL PROTEIN 6.5 G/DL (6.4-8.2); eCRCL 48 ML/MIN; eGFR 66 ML/MIN
[2024-07-14] MEDS: lactose-reduced food (Ensure Enlive) - 237ml bottle PO SCH (13:33)
[2024-07-15] VITALS (7 sets, daily range): BP systolic 132–162; BP diastolic 54–80; PULSE 68–81; RESP 12–21; TEMP 97.9–99; O2SAT 93–100
[2024-07-15 07:07] LABS: BASOPHILS # (AUTO) 0.1 X10'3 (0-0.2); BASOPHILS % (AUTO) 0.6 % (0-1); EOSINOPHILS # (AUTO) 0.3 X10'3 (0-0.9); EOSINOPHILS % (AUTO) 1.9 % (0-6); HEMATOCRIT 32.5 % (42.0-52.0); HEMOGLOBIN 11.2 g/dl (14.0-17.9); LYMPHOCYTES # (AUTO) 1.6 X10'3 (1.1-4.8); LYMPHOCYTES % (AUTO) 11.4 % (21-51); MEAN CORPUSCULAR HEMOGLOBIN 32.4 PG (27.0-31.0); MEAN CORPUSCULAR HGB CONC 34.4 g/dL (33.0-36.5); MEAN CORPUSCULAR VOLUME 94.3 FL (78-98); MEAN PLATELET VOLUME 7.4 FL (7.4-10.4); MONOCYTES # (AUTO) 1.4 X10'3 (0-0.9); MONOCYTES % (AUTO) 9.5 % (2-12); NEUTROPHILS # (AUTO) 11.1 X10'3 (1.8-7.7); NEUTROPHILS % (AUTO) 76.6 % (42-75); PLATELET COUNT 815 X10'3 (140-440); RED BLOOD COUNT 3.45 X10'6 (4.70-6.10); RED CELL DISTRIBUTION WIDTH 17.1 % (11.5-14.5); WHITE BLOOD COUNT 14.4 X10'3 (4.5-11.0)
[2024-07-15 08:11] LABS: ALANINE AMINOTRANSFERASE 43 U/L (12-78); ALBUMIN 1.8 G/DL (3.4-5.0); ALBUMIN/GLOBULIN RATIO 0.3 (1.1-1.5); ALKALINE PHOSPHATASE 255 IU/L (46-116); ANION GAP 10 (8-16); ASPARTATE AMINO TRANSFERASE 46 U/L (10-37); BILIRUBIN,TOTAL 0.4 MG/DL (0.1-1.0); BLOOD UREA NITROGEN 10 MG/DL (7-18); BUN/CREATININE RATIO 9.8 (10.0-20.0); CALCIUM 8.8 MG/DL (8.5-10.1); CHLORIDE 100 MMOL/L (99-107); CREATININE 1.02 MG/DL (0.60-1.10); GLUCOSE 105 MG/DL (70-104); POTASSIUM 3.8 MMOL/L (3.5-5.1); SODIUM 134 MMOL/L (135-145); TOTAL CARBON DIOXIDE 23.9 MMOL/L (24-32); TOTAL PROTEIN 7.1 G/DL (6.4-8.2); eCRCL 52 ML/MIN; eGFR 72 ML/MIN
[2024-07-15 09:09] LABS: PRO BRAIN NATRIURETIC PEPTIDE 2334 PG/ML (0-125)
[2024-07-16 05:12] LABS: BASOPHILS # (AUTO) 0.1 X10'3 (0-0.2); BASOPHILS % (AUTO) 0.6 % (0-1); EOSINOPHILS # (AUTO) 0.3 X10'3 (0-0.9); EOSINOPHILS % (AUTO) 2.2 % (0-6); HEMATOCRIT 34.4 % (42.0-52.0); HEMOGLOBIN 11.7 g/dl (14.0-17.9); LYMPHOCYTES % (AUTO) 16.9 % (21-51); MEAN CORPUSCULAR HEMOGLOBIN 32.5 PG (27.0-31.0); MEAN CORPUSCULAR HGB CONC 34.1 g/dL (33.0-36.5); MEAN CORPUSCULAR VOLUME 95.4 FL (78-98); MEAN PLATELET VOLUME 7.5 FL (7.4-10.4); MONOCYTES % (AUTO) 8.8 % (2-12); NEUTROPHILS # (AUTO) 8.4 X10'3 (1.8-7.7); NEUTROPHILS % (AUTO) 71.5 % (42-75); PLATELET COUNT 924 X10'3 (140-440); WHITE BLOOD COUNT 11.7 X10'3 (4.5-11.0)
[2024-07-16 05:31] LABS: ALANINE AMINOTRANSFERASE 45 U/L (12-78); ALBUMIN/GLOBULIN RATIO 0.4 (1.1-1.5); ALKALINE PHOSPHATASE 265 IU/L (46-116); ANION GAP 7 (8-16); ASPARTATE AMINO TRANSFERASE 44 U/L (10-37); BILIRUBIN,TOTAL 0.4 MG/DL (0.1-1.0); BLOOD UREA NITROGEN 13 MG/DL (7-18); BUN/CREATININE RATIO 10.4 (10.0-20.0); CALCIUM 8.9 MG/DL (8.5-10.1); CHLORIDE 100 MMOL/L (99-107); CREATININE 1.25 MG/DL (0.60-1.10); GLUCOSE 102 MG/DL (70-104); POTASSIUM 4.5 MMOL/L (3.5-5.1); SODIUM 134 MMOL/L (135-145); TOTAL CARBON DIOXIDE 27.5 MMOL/L (24-32); TOTAL PROTEIN 7.2 G/DL (6.4-8.2); eCRCL 42 ML/MIN; eGFR 57 ML/MIN
[2024-07-16 06:00] VITALS: BP 152/73; PULSE 71; RESP 16; TEMP 98.7; O2SAT 96
[2024-07-16] MEDS: amLODIPine 5mg tablet PO SCH (08:42)
[2024-07-16 10:00] VITALS: BP 146/66; PULSE 74; RESP 14; TEMP 97.3; O2SAT 100
[2024-07-16] MEDS: JUVEN Smoothie Arginine/Glut./Ca2+Bmb (Juven 19.3pkt) 240ml cup PO SCH (17:30)
[2024-07-16 18:00] VITALS: BP 118/61; PULSE 84; RESP 14; TEMP 97.9; O2SAT 98
[2024-07-16 22:00] VITALS: BP 144/70; PULSE 62; RESP 16; TEMP 98.3; O2SAT 94
[2024-07-17 06:00] VITALS: BP 145/68; PULSE 66; RESP 16; TEMP 98.5; O2SAT 97
[2024-07-17 06:03] LABS: BASOPHILS # (AUTO) 0.1 X10'3 (0-0.2); LYMPHOCYTES # (AUTO) 2.4 X10'3 (1.1-4.8)
[2024-07-17 06:05] LABS: EOSINOPHILS # (AUTO) 0.3 X10'3 (0-0.9); EOSINOPHILS % (AUTO) 2.5 % (0-6); HEMATOCRIT 35.1 % (42.0-52.0); HEMOGLOBIN 11.8 g/dl (14.0-17.9); LYMPHOCYTES % (AUTO) 21.7 % (21-51); MEAN CORPUSCULAR HEMOGLOBIN 31.8 PG (27.0-31.0); MEAN CORPUSCULAR HGB CONC 33.5 g/dL (33.0-36.5); MEAN CORPUSCULAR VOLUME 94.8 FL (78-98); MEAN PLATELET VOLUME 7.3 FL (7.4-10.4); MONOCYTES % (AUTO) 8.8 % (2-12); NEUTROPHILS # (AUTO) 7.2 X10'3 (1.8-7.7); PLATELET COUNT 920 X10'3 (140-440); RED CELL DISTRIBUTION WIDTH 16.9 % (11.5-14.5); WHITE BLOOD COUNT 10.9 X10'3 (4.5-11.0)
[2024-07-17 06:26] LABS: ALANINE AMINOTRANSFERASE 48 U/L (12-78); ALBUMIN 2.1 G/DL (3.4-5.0); ALBUMIN/GLOBULIN RATIO 0.4 (1.1-1.5); ALKALINE PHOSPHATASE 244 IU/L (46-116); ANION GAP 8 (8-16); ASPARTATE AMINO TRANSFERASE 42 U/L (10-37); BILIRUBIN,TOTAL 0.3 MG/DL (0.1-1.0); BLOOD UREA NITROGEN 16 MG/DL (7-18); BUN/CREATININE RATIO 13.7 (10.0-20.0); CHLORIDE 101 MMOL/L (99-107); CREATININE 1.17 MG/DL (0.60-1.10); GLUCOSE 104 MG/DL (70-104); POTASSIUM 4.1 MMOL/L (3.5-5.1); SODIUM 134 MMOL/L (135-145); TOTAL CARBON DIOXIDE 25.3 MMOL/L (24-32); TOTAL PROTEIN 7.3 G/DL (6.4-8.2); eCRCL 45 ML/MIN; eGFR 62 ML/MIN
[2024-07-17 08:00] VITALS: RESP 16; O2SAT 97
[2024-07-17 10:00] VITALS: BP 91/70; PULSE 89; RESP 18; TEMP 97.6; O2SAT 95
[2024-07-17 18:00] VITALS: BP 135/66; PULSE 77; RESP 16; TEMP 99; O2SAT 98
[2024-07-17 20:00] VITALS: RESP 18; O2SAT 98
[2024-07-17 22:00] VITALS: BP 141/66; PULSE 87; RESP 16; TEMP 99; O2SAT 98
[2024-07-18] VITALS (7 sets, daily range): BP systolic 126–146; BP diastolic 56–88; PULSE 82–94; RESP 16–18; TEMP 98.7–100.3; O2SAT 98–100
[2024-07-18 09:42] LABS: BASOPHILS # (AUTO) 0.1 X10'3 (0-0.2); BASOPHILS % (AUTO) 0.8 % (0-1); MONOCYTES # (AUTO) 0.9 X10'3 (0-0.9)
[2024-07-18 09:44] LABS: EOSINOPHILS # (AUTO) 0.2 X10'3 (0-0.9); EOSINOPHILS % (AUTO) 2.1 % (0-6); HEMATOCRIT 36.3 % (42.0-52.0); HEMOGLOBIN 12.5 g/dl (14.0-17.9); LYMPHOCYTES # (AUTO) 2.3 X10'3 (1.1-4.8); LYMPHOCYTES % (AUTO) 20.1 % (21-51); MEAN CORPUSCULAR HGB CONC 34.3 g/dL (33.0-36.5); MEAN CORPUSCULAR VOLUME 96.3 FL (78-98); MEAN PLATELET VOLUME 7.4 FL (7.4-10.4); MONOCYTES % (AUTO) 7.9 % (2-12); NEUTROPHILS # (AUTO) 7.8 X10'3 (1.8-7.7); NEUTROPHILS % (AUTO) 69.1 % (42-75); RED BLOOD COUNT 3.78 X10'6 (4.70-6.10); RED CELL DISTRIBUTION WIDTH 17.1 % (11.5-14.5); WHITE BLOOD COUNT 11.3 X10'3 (4.5-11.0)
[2024-07-18 09:45] LABS: ALANINE AMINOTRANSFERASE 50 U/L (12-78); ALBUMIN 2.4 G/DL (3.4-5.0); ALBUMIN/GLOBULIN RATIO 0.4 (1.1-1.5); ALKALINE PHOSPHATASE 247 IU/L (46-116); ANION GAP 9 (8-16); ASPARTATE AMINO TRANSFERASE 49 U/L (10-37); BILIRUBIN,TOTAL 0.2 MG/DL (0.1-1.0); BLOOD UREA NITROGEN 26 MG/DL (7-18); BUN/CREATININE RATIO 20.2 (10.0-20.0); CALCIUM 10.1 MG/DL (8.5-10.1); CHLORIDE 99 MMOL/L (99-107); CREATININE 1.29 MG/DL (0.60-1.10); GLUCOSE 138 MG/DL (70-104); POTASSIUM 4.8 MMOL/L (3.5-5.1); SODIUM 134 MMOL/L (135-145); TOTAL CARBON DIOXIDE 26.4 MMOL/L (24-32); TOTAL PROTEIN 8.1 G/DL (6.4-8.2); eCRCL 41 ML/MIN; eGFR 55 ML/MIN
[2024-07-18 09:47] LABS: PLATELET COUNT 1072 X10'3 (140-440)
[2024-07-18 16:39] LABS: ANISOCYTOSIS 1+; PLATELET ESTIMATE INCREASED; TOTAL CELLS COUNTED 100
[2024-07-18] MEDS: normal saline 1000ml 1,000 ML IV SCH (17:11)
[2024-07-19 06:02] LABS: BASOPHILS # (AUTO) 0.1 X10'3 (0-0.2); EOSINOPHILS # (AUTO) 0.3 X10'3 (0-0.9); MEAN PLATELET VOLUME 7.4 FL (7.4-10.4); NEUTROPHILS # (AUTO) 6.2 X10'3 (1.8-7.7)
[2024-07-19 06:03] LABS: BASOPHILS % (AUTO) 1.2 % (0-1); EOSINOPHILS % (AUTO) 2.7 % (0-6); HEMATOCRIT 33.6 % (42.0-52.0); HEMOGLOBIN 11.4 g/dl (14.0-17.9); LYMPHOCYTES # (AUTO) 2.5 X10'3 (1.1-4.8); LYMPHOCYTES % (AUTO) 25.1 % (21-51); MEAN CORPUSCULAR HEMOGLOBIN 32.6 PG (27.0-31.0); MEAN CORPUSCULAR VOLUME 95.9 FL (78-98); MONOCYTES # (AUTO) 0.9 X10'3 (0-0.9); MONOCYTES % (AUTO) 9.3 % (2-12); NEUTROPHILS % (AUTO) 61.7 % (42-75); PLATELET COUNT 955 X10'3 (140-440); RED BLOOD COUNT 3.51 X10'6 (4.70-6.10); RED CELL DISTRIBUTION WIDTH 17.2 % (11.5-14.5)
[2024-07-19 06:23] LABS: ALANINE AMINOTRANSFERASE 52 U/L (12-78); ALBUMIN 2.2 G/DL (3.4-5.0); ALBUMIN/GLOBULIN RATIO 0.4 (1.1-1.5); ALKALINE PHOSPHATASE 213 IU/L (46-116); ANION GAP 9 (8-16); ASPARTATE AMINO TRANSFERASE 42 U/L (10-37); BILIRUBIN,TOTAL 0.2 MG/DL (0.1-1.0); BLOOD UREA NITROGEN 36 MG/DL (7-18); CALCIUM 9.5 MG/DL (8.5-10.1); CHLORIDE 102 MMOL/L (99-107); CREATININE 1.09 MG/DL (0.60-1.10); GLUCOSE 101 MG/DL (70-104); POTASSIUM 4.6 MMOL/L (3.5-5.1); SODIUM 135 MMOL/L (135-145); TOTAL CARBON DIOXIDE 24.5 MMOL/L (24-32); TOTAL PROTEIN 7.2 G/DL (6.4-8.2); eCRCL 49 ML/MIN; eGFR 67 ML/MIN
[2024-07-19 07:21] VITALS: BP 141/75; PULSE 86; RESP 18; TEMP 98.2; O2SAT 93
[2024-07-19 08:00] VITALS: RESP 16
[2024-07-19 10:00] VITALS: BP 103/48; PULSE 81; RESP 16; TEMP 97.6; O2SAT 98
[2024-07-19] MEDS: acetaminophen 325mg tablet PO SCH (16:28)
[2024-07-19 18:00] VITALS: BP 145/62; PULSE 62; RESP 14; TEMP 98.4; O2SAT 97
[2024-07-19 19:30] VITALS: RESP 16
[2024-07-20 06:00] VITALS: BP 112/59; PULSE 76; RESP 17; TEMP 97.3; O2SAT 96
[2024-07-20 08:00] VITALS: RESP 16; O2SAT 96
[2024-07-20 10:00] VITALS: BP 121/60; PULSE 78; RESP 17; TEMP 97.6; O2SAT 97
[2024-07-20 10:47] LABS: BASOPHILS # (AUTO) 0.1 X10'3 (0-0.2); EOSINOPHILS # (AUTO) 0.2 X10'3 (0-0.9); LYMPHOCYTES # (AUTO) 1.7 X10'3 (1.1-4.8); MEAN PLATELET VOLUME 7.5 FL (7.4-10.4); MONOCYTES # (AUTO) 0.9 X10'3 (0-0.9)
[2024-07-20 10:49] LABS: BASOPHILS % (AUTO) 1.1 % (0-1); HEMATOCRIT 34.6 % (42.0-52.0); HEMOGLOBIN 11.6 g/dl (14.0-17.9); LYMPHOCYTES % (AUTO) 21.1 % (21-51); MEAN CORPUSCULAR HEMOGLOBIN 32.4 PG (27.0-31.0); MEAN CORPUSCULAR HGB CONC 33.7 g/dL (33.0-36.5); MEAN CORPUSCULAR VOLUME 96.2 FL (78-98); MONOCYTES % (AUTO) 10.7 % (2-12); NEUTROPHILS # (AUTO) 5.2 X10'3 (1.8-7.7); NEUTROPHILS % (AUTO) 64.1 % (42-75); PLATELET COUNT 890 X10'3 (140-440); RED BLOOD COUNT 3.59 X10'6 (4.70-6.10); WHITE BLOOD COUNT 8.1 X10'3 (4.5-11.0)
[2024-07-20 11:06] LABS: ALANINE AMINOTRANSFERASE 46 U/L (12-78); ALBUMIN 2.3 G/DL (3.4-5.0); ALBUMIN/GLOBULIN RATIO 0.4 (1.1-1.5); ALKALINE PHOSPHATASE 188 IU/L (46-116); ANION GAP 10 (8-16); ASPARTATE AMINO TRANSFERASE 33 U/L (10-37); BILIRUBIN,TOTAL 0.2 MG/DL (0.1-1.0); BLOOD UREA NITROGEN 27 MG/DL (7-18); BUN/CREATININE RATIO 26.2 (10.0-20.0); CALCIUM 9.1 MG/DL (8.5-10.1); CHLORIDE 102 MMOL/L (99-107); CREATININE 1.03 MG/DL (0.60-1.10); GLUCOSE 132 MG/DL (70-104); POTASSIUM 4.3 MMOL/L (3.5-5.1); SODIUM 134 MMOL/L (135-145); TOTAL CARBON DIOXIDE 22.2 MMOL/L (24-32); TOTAL PROTEIN 7.7 G/DL (6.4-8.2); eCRCL 51 ML/MIN; eGFR 71 ML/MIN
[2024-07-20] MEDS ORDERED: PANT-47 PO (12:15)
[2024-07-20] MEDS ORDERED: CLOP75TA34 PO (12:15)
[2024-07-20] MEDS ORDERED: gabapentin capsule PO (12:15)
[2024-07-20] MEDS ORDERED: NOR5T PO (12:15)
[2024-07-20] MEDS ORDERED: CYAN500T71 PO (12:15)
[2024-07-20] MEDS ORDERED: FOLI1TAB27 PO (12:15)
[2024-07-20] MEDS ORDERED: ALLO100T25 PO (12:15)
[2024-07-20] MEDS ORDERED: ATOR20TA66 PO (12:15)
[2024-07-20] MEDS ORDERED: ACET-1074 PO (12:15)
[2024-07-20] MEDS ORDERED: thiamine tablet PO (12:15)
== END 2024-07-20 13:58 | disposition home health service (06) | DRG 917 ==
LOC: ER 15:36 → ED HOLD 19:39 → PCU 3S 22:38 → SUR 3N 07-15 22:35 → UNDODISIN 07-20 13:28
PROVIDERS: ADMIT Internal Medicine Critical Care Medicine; ATTEND Family Medicine
PROC: 30233N1 Transfusion of Nonautologous Red Blood Cells into Peripheral Vein, Percutaneous Approach (ICD-10-PCS; 2024-07-11)
PROC: 0DB68ZX Excision of Stomach, Via Natural or Artificial Opening Endoscopic, Diagnostic (ICD-10-PCS; principal; 2024-07-12)
DX: T43.621A Poisoning by amphetamines, accidental (unintentional), initial encounter (principal); G92.8 Other toxic encephalopathy; K26.4 Chronic or unspecified duodenal ulcer with hemorrhage; N17.0 Acute kidney failure with tubular necrosis; E87.1 Hypo-osmolality and hyponatremia; R65.10 Systemic inflammatory response syndrome (SIRS) of non-infectious origin without acute organ dysfunction; Z20.822 Contact with and (suspected) exposure to COVID-19; F15.10 Other stimulant abuse, uncomplicated; F10.20 Alcohol dependence, uncomplicated; T40.3X1A Poisoning by methadone, accidental (unintentional), initial encounter; I11.0 Hypertensive heart disease with heart failure; I50.9 Heart failure, unspecified; G62.89 Other specified polyneuropathies; E86.0 Dehydration; D53.9 Nutritional anemia, unspecified; E87.8 Other disorders of electrolyte and fluid balance, not elsewhere classified; K59.09 Other constipation; R73.9 Hyperglycemia, unspecified; M54.9 Dorsalgia, unspecified; Z86.73 Personal history of transient ischemic attack (TIA), and cerebral infarction without residual deficits; Z87.891 Personal history of nicotine dependence; Z91.148 Patient's other noncompliance with medication regimen for other reason; Y92.89 Other specified places as the place of occurrence of the external cause
CPT/HCPCS: 36415; 36430; 43239; 70450; 70551; 71045; 71250; 74176; 80048; 80053; 80061; 80305; 81001; 82140; 82150; 82272; 82570; 82607; 82728; 83036; 83540; 83550; 83605; 83690; 83735; 83880; 83930; 83935; 84100; 84145; 84300; 84443; 84466; 84484; 84550; 85007; 85025; 85027; 85610; 85651; 86140; 86885; 86900; 86901; 86920; 87040; 87081; 87207; 87811; 88305; 88342; 92508; 92616; 93005; 93306; 97110; 97116; 97163; 97530; 97535; 99152; 99285; A6590; G0378; J0131; J0360; J0696; J1644; J1885; J2250; J2470; J2543; J3010; J7030; J7040; P9016

== ENCOUNTER 2024-10-14 09:42 | Emergency (ER) | payer MEDICARE, MEDICAID ==
[~2024-10-14] VITALS: Ht 157.5 cm; Wt 60.0 kg
[~2024-10-14 09:42] MED LIST changes: -ALLO100T PO; +ALLO100T25 PO; -CHOL50002 PO; -CLOP75TA33 PO; +CLOP75TA34 PO; +CYAN500T71 PO; -GABA300C PO; -MULT-25 PO; +NOR5T PO; +PANT-47 PO; -THIA50TA10 PO; +UNABLE TO OBTAIN; +gabapentin capsule PO; +thiamine tablet PO
[2024-10-14 10:21] LABS: BASOPHILS # (AUTO) 0.1 X10'3 (0-0.2); BASOPHILS % (AUTO) 0.7 % (0-1); EOSINOPHILS # (AUTO) 0.4 X10'3 (0-0.9); EOSINOPHILS % (AUTO) 4.7 % (0-6); HEMATOCRIT 25.4 % (42.0-52.0); HEMOGLOBIN 8.3 g/dl (14.0-17.9); LYMPHOCYTES # (AUTO) 2.6 X10'3 (1.1-4.8); LYMPHOCYTES % (AUTO) 30.7 % (21-51); MEAN CORPUSCULAR HEMOGLOBIN 31.9 PG (27.0-31.0); MEAN CORPUSCULAR HGB CONC 32.7 g/dL (33.0-36.5); MEAN CORPUSCULAR VOLUME 97.7 FL (78-98); MEAN PLATELET VOLUME 7.1 FL (7.4-10.4); MONOCYTES # (AUTO) 0.7 X10'3 (0-0.9); MONOCYTES % (AUTO) 8.7 % (2-12); NEUTROPHILS # (AUTO) 4.7 X10'3 (1.8-7.7); NEUTROPHILS % (AUTO) 55.2 % (42-75); PLATELET COUNT 494 X10'3 (140-440); RED BLOOD COUNT 2.59 X10'6 (4.70-6.10); RED CELL DISTRIBUTION WIDTH 16.5 % (11.5-14.5); WHITE BLOOD COUNT 8.4 X10'3 (4.5-11.0)
[2024-10-14 10:39] LABS: ALANINE AMINOTRANSFERASE 17 U/L (12-78); ALBUMIN/GLOBULIN RATIO 0.7 (1.1-1.5); ALKALINE PHOSPHATASE 110 IU/L (46-116); ANION GAP 9 (8-16); ASPARTATE AMINO TRANSFERASE 20 U/L (10-37); BILIRUBIN,TOTAL 0.2 MG/DL (0.1-1.0); BLOOD UREA NITROGEN 22 MG/DL (7-18); BUN/CREATININE RATIO 19.1 (10.0-20.0); CALCIUM 8.7 MG/DL (8.5-10.1); CHLORIDE 105 MMOL/L (99-107); CREATININE 1.15 MG/DL (0.60-1.10); GLUCOSE 127 MG/DL (70-104); POTASSIUM 4.6 MMOL/L (3.5-5.1); SODIUM 139 MMOL/L (135-145); TOTAL CARBON DIOXIDE 24.6 MMOL/L (24-32); TOTAL PROTEIN 7.4 G/DL (6.4-8.2); eCRCL 46 ML/MIN; eGFR 63 ML/MIN
[2024-10-14 10:49] LABS: PRO BRAIN NATRIURETIC PEPTIDE 493 PG/ML (0-125)
[2024-10-14 12:38] VITALS: BP 126/53; RESP 16; TEMP 98.6; O2SAT 100
== END 2024-10-14 12:43 | disposition home or self-care (01) ==
LOC: ER 09:43
DX: R42 Dizziness and giddiness (principal); T39.1X5A Adverse effect of 4-Aminophenol derivatives, initial encounter; G89.29 Other chronic pain; M54.9 Dorsalgia, unspecified; F12.90 Cannabis use, unspecified, uncomplicated; F11.90 Opioid use, unspecified, uncomplicated; E78.5 Hyperlipidemia, unspecified; F10.90 Alcohol use, unspecified, uncomplicated; I10 Essential (primary) hypertension; Z88.1 Allergy status to other antibiotic agents; Z86.73 Personal history of transient ischemic attack (TIA), and cerebral infarction without residual deficits; Z79.899 Other long term (current) drug therapy; Z98.890 Other specified postprocedural states; Y90.9 Presence of alcohol in blood, level not specified; Y92.89 Other specified places as the place of occurrence of the external cause
CPT/HCPCS: 36415; 71045; 80053; 83880; 84484; 85025; 93005; 99285